=== PATIENT | male | born 1955 | race Caucasian/White ===

== ENCOUNTER 2018-06-21 14:36 | Emergency (ER) | payer MEDICAID ==
[2018-06-21] MEDS: Lidocaine 2% Viscous Solution 100 ML Bottle PO STA (14:55)
--- NOTE | 2018-06-21 15:00 | EDM.PDOC ---
ED HPI GENERAL MEDICAL PROBLEM - General Chief Complaint: General Stated Complaint: Meat Stick Stuck in the Throat Time Seen by Provider: 06/21/18 14:55 Source of Information: Reports: Patient History Limitations: Reports: No Limitations - History of Present Illness INITIAL COMMENTS - FREE TEXT/NARRATIVE: According to patient he ate eggs and steak for breakfast around 8 am today. He felt a piece of steak stuck in his throat. Since then he was not been able to eat or drink. Claims he feels the food is stuck in the throat. No nausea or vomiting. He claims he did have hiccough for a while. No nausea or vomiting. No increased salivation. Onset: Today Onset Date: 06/21/18 Onset Time: 08:00 Severity: Mild Improves with: Reports: None Worsens with: Reports: None Associated Symptoms: Denies: Confusion, Chest Pain, Cough, Diaphoresis, Fever/ Chills, Nausea/Vomiting, Rash, Seizure, Shortness of Breath, Syncope, Weakness - Related Data Allergies Allergy/AdvReac Type Severity Reaction Status Date / Time No Known Allergies Allergy Verified 04/24/14 10:01 Past Medical History - Past Health History Medical/Surgical History: Denies Medical/Surgical History ED ROS GENERAL - Review of Systems Review Of Systems: See Below Constitutional: Denies: Fever, Chills, Malaise, Weakness HEENT: Reports: Throat Pain. Denies: Nose Pain, Rhinitis, Throat Swelling, Vertigo, Vision Change Respiratory: Denies: Shortness of Breath, Cough, Sputum Cardiovascular: Denies: Chest Pain, Lightheadedness GI/Abdominal: Reports: Flatus. Denies: Abdominal Pain, Constipation, Nausea, Vomiting : Denies: Flank Pain, Frequency ED EXAM, GENERAL - Physical Exam Exam: See Below Exam Limited By: No Limitations General Appearance: Alert, WD/WN, No Apparent Distress Eye Exam: Bilateral Eye: EOMI, PERRL Ears: Normal External Exam, Normal Canal, Hearing Grossly Normal, Normal TMs Ear Exam: Bilateral Ear: TM normal Nose: Normal Inspection, Normal Mucosa, No Blood Throat/Mouth: Normal Inspection, Normal Lips, Normal Teeth, Normal Gums, Normal Oropharynx, Normal Voice, No Airway Compromise Head: Atraumatic, Normocephalic Neck: Normal Inspection, Supple, Non-Tender, Full Range of Motion Respiratory/Chest: No Respiratory Distress, Lungs Clear, Normal Breath Sounds, No Accessory Muscle Use, Chest Non-Tender Cardiovascular: Normal Peripheral Pulses, Regular Rate, Rhythm, No Edema, No Gallop, No JVD, No Murmur, No Rub GI/Abdominal: Normal Bowel Sounds, Soft, Non-Tender, No Organomegaly, No Distention, No Abnormal Bruit, No Mass Course - Vital Signs Text/Narrative:: Pt has been speaking fine, has been swallowing saliva. Not in distress . Pt was giving water to drink in the emergency room, he did drink the cup of water. he claimed he felt fine and was not able to do this all day. then he was given Xylocaine viscus 30mg to drink, which he did and also drank 1 more cup of water. felt better. Pt reassured that there is no food stuck in the food pipe at this point as he has been able to drink 2 cups of water not keep it down and he is not ahving excessive salivation. Pt advised soft diet for next 24 hrs. advised to chew his food well. Departure - Departure Time of Disposition: 15:10 Disposition: Home, Self-Care 01 Condition: Fair Clinical Impression: Dysphagia - Discharge Information - Problem List & Annotations (1) Dysphagia SNOMED Code(s): 68611426, 994068854 Code(s): R13.10 - DYSPHAGIA, UNSPECIFIED Status: Acute - Problem List Review Problem List Initiated/Reviewed/Updated: Yes - Assessment/Plan Assessment:: Dysphagia Plan: Pt has been speaking fine, has been swallowing saliva. Not in distress . Pt was giving water to drink in the emergency room, he did drink the cup of water. he claimed he felt fine and was not able to do this all day. then he was given Xylocaine viscus 30mg to drink, which he did and also drank 1 more cup of water. felt better. Pt reassured that there is no food stuck in the food pipe at this point as he has been able to drink 2 cups of water not keep it down and he is not ahving excessive salivation. Pt advised soft diet for next 24 hrs. advised to chew his food well.
== END 2018-06-21 15:00 | disposition home or self-care (01) ==
LOC: LB.ED 14:36
DX: R13.10 Dysphagia, unspecified (principal)
CPT/HCPCS: 99283; A9270-GY

== ENCOUNTER 2019-05-22 13:10 | Emergency (ER) | payer OTHER, MEDICAID ==
--- NOTE | 2019-05-22 13:52 | EDM.PDOC ---
ED HPI GENERAL MEDICAL PROBLEM - General Chief Complaint: Respiratory Problem Stated Complaint: Cough Time Seen by Provider: 05/22/19 13:30 - History of Present Illness INITIAL COMMENTS - FREE TEXT/NARRATIVE: THis patient presents to the ED because he isn't feeling right. He states he is feeling congested and feels like he should cough something out of his lungs but can't. He also states he feels sweaty and warm but denies a fever. He denies headache or chest pain. He denies nausea, vomiting. States he has been taking his medication as prescribed. - Related Data Allergies Allergy/AdvReac Type Severity Reaction Status Date / Time No Known Allergies Allergy Verified 05/22/19 13:35 Home Meds: Home Meds Hydrocodone/Acetaminophen [Hydrocodon-Acetaminophn 10-300] 10 - 325 mg PO TID PRN 05/20/19 [History] Omeprazole 20 mg PO DAILY PRN 05/20/19 [History] Propranolol [Inderal] 80 mg PO BID 05/20/19 [History] Tamsulosin [Flomax] 0.4 mg PO DAILY 05/20/19 [History] atorvaSTATin Calcium [Atorvastatin Calcium] 40 mg PO BEDTIME 05/20/19 [History] Past Medical History - Past Health History Medical/Surgical History: Denies Medical/Surgical History ED ROS GENERAL - Review of Systems Review Of Systems: See Below Constitutional: Denies: Fever, Chills, Weakness HEENT: Reports: No Symptoms Respiratory: Reports: Cough, Other (congestion). Denies: Shortness of Breath Cardiovascular: Denies: Chest Pain, Dyspnea on Exertion, Palpitations GI/Abdominal: Reports: No Symptoms Musculoskeletal: Reports: No Symptoms Neurological: Reports: No Symptoms ED EXAM, GENERAL - Physical Exam Exam: See Below Exam Limited By: No Limitations General Appearance: Alert, No Apparent Distress Eye Exam: Bilateral Eye: PERRL Nose: Normal Inspection Throat/Mouth: Normal Inspection Head: Atraumatic, Normocephalic Neck: Normal Inspection, Supple, Non-Tender, Full Range of Motion Respiratory/Chest: No Respiratory Distress, Lungs Clear, Normal Breath Sounds, Chest Non-Tender Cardiovascular: Regular Rate, Rhythm Extremities: Normal Range of Motion Neurological: Alert, Oriented Psychiatric: Normal Affect Skin Exam: Warm, Dry Course - Vital Signs Last Recorded V/S: Last Vital Signs Temp 35.6 C 05/22/19 13:20 Pulse 80 05/22/19 13:20 Resp 20 05/22/19 13:20 BP 135/92 H 05/22/19 13:20 Pulse Ox 96 05/22/19 13:20 - Orders/Labs/Meds Orders: Active Orders 24 hr Category Date Time Status Chest 2V [CR] Stat Exams 05/22/19 13:45 Taken Labs: Laboratory Tests 05/22/19 05/22/19 05/22/19 Range/Units 14:00 14:00 14:00 WBC 10.2 (4.0-11.0) K/uL RBC 5.53 (4.50-6.50) M/uL Hgb 15.3 (13.0-18.0) g/dL Hct 46.4 (40.0-54.0) % MCV 84 (76-96) fL MCH 27.7 (27.0-32.0) pg MCHC 33.0 (31.0-35.0) g/dL RDW 14.3 (11.0-16.0) % Plt Count 128 L (150-400) K/uL MPV 11.4 H (6.0-10.0) fL Neut % (Auto) 82.8 H (45.0-70.0) % Lymph % (Auto) 9.2 L (20.0-40.0) % Sandoval % (Auto) 6.5 (3.0-10.0) % Eos % (Auto) 0.9 L (1.0-5.0) % Baso % (Auto) 0.6 H (0.0-0.5) % Neut # (Auto) 8.48 H (2.00-7.50) K/uL Lymph # (Auto) 0.94 L (1.50-4.00) K/uL Sandoval # (Auto) 0.67 (0.20-0.80) K/uL Eos # (Auto) 0.09 (0.04-0.40) K/uL Baso # (Auto) 0.06 (0.02-0.10) K/uL D-Dimer, Quantitative 427 H (0-400) ng/mL Sodium 141 (136-145) mmol/L Potassium 4.8 (3.5-5.1) mmol/L Chloride 102 (98-107) mmol/L Carbon Dioxide 28.8 (21.0-32.0) mmol/L Anion Gap 15.0 (5.0-15.0) mmol/L BUN 13 (8-26) mg/dL Creatinine 1.39 H (0.70-1.30) mg/dL Est Cr Clr Drug Dosing 65.86 mL/min Estimated GFR (MDRD) 52 L (>60) MLS/MIN BUN/Creatinine Ratio 9.4 (6-25) Glucose 192 H D (74-100) mg/dL Calcium 9.2 (8.5-10.1) mg/dL Troponin I (0.000-0.060) ng/mL B-Natriuretic Peptide (0-125) pg/mL 05/22/19 Range/Units 14:00 WBC (4.0-11.0) K/uL RBC (4.50-6.50) M/uL Hgb (13.0-18.0) g/dL Hct (40.0-54.0) % MCV (76-96) fL MCH (27.0-32.0) pg MCHC (31.0-35.0) g/dL RDW (11.0-16.0) % Plt Count (150-400) K/uL MPV (6.0-10.0) fL Neut % (Auto) (45.0-70.0) % Lymph % (Auto) (20.0-40.0) % Sandoval % (Auto) (3.0-10.0) % Eos % (Auto) (1.0-5.0) % Baso % (Auto) (0.0-0.5) % Neut # (Auto) (2.00-7.50) K/uL Lymph # (Auto) (1.50-4.00) K/uL Sandoval # (Auto) (0.20-0.80) K/uL Eos # (Auto) (0.04-0.40) K/uL Baso # (Auto) (0.02-0.10) K/uL D-Dimer, Quantitative (0-400) ng/mL Sodium (136-145) mmol/L Potassium (3.5-5.1) mmol/L Chloride (98-107) mmol/L Carbon Dioxide (21.0-32.0) mmol/L Anion Gap (5.0-15.0) mmol/L BUN (8-26) mg/dL Creatinine (0.70-1.30) mg/dL Est Cr Clr Drug Dosing mL/min Estimated GFR (MDRD) (>60) MLS/MIN BUN/Creatinine Ratio (6-25) Glucose (74-100) mg/dL Calcium (8.5-10.1) mg/dL Troponin I < 0.017 (0.000-0.060) ng/mL B-Natriuretic Peptide 179 H (0-125) pg/mL - Re-Assessments/Exams Free Text/Narrative Re-Assessment/Exam: 05/22/19 15:26 Patient was not able to clearly articulate his reason for coming in today. He had a normal physical exam. Labs and a CXR were obtained but he did not want to wait for the results, initially stating to "tell Dr. Lyle to call me with the results." I told the patient that I would contact him later this afternoon when the results were available. 05/22/19 15:29 Unable to reach patient by phone to discuss lab and CXR results. Let message with request to call me back. 05/22/19 16:04 Spoke with the patient by phone to review lab and CXR results; questions addressed. He does have a stress test scheduled for Friday, 05/24 and was advised to plan on doing this unless he develops a cough, shortness or breath, chest pain, or other concerning symptoms over the weekend. If he does, he was instructed to return to the ED immediately. Departure - Departure Time of Disposition: 15:00 Disposition: Home, Self-Care 01 Condition: Good Clinical Impression: Chest fullness - Discharge Information *PRESCRIPTION DRUG MONITORING PROGRAM REVIEWED*: Not Applicable *COPY OF PRESCRIPTION DRUG MONITORING REPORT IN PATIENT FREDDIE: Not Applicable Instructions: Nonspecific Chest Pain Forms: ED Department Discharge - My Orders Last 24 Hours: My Active Orders 05/22/19 13:45 Chest 2V [CR] Stat - Assessment/Plan Last 24 Hours: My Active Orders 05/22/19 13:45 Chest 2V [CR] Stat
--- NOTE | 2019-05-23 17:52 | CR ---
DATE OF SERVICE: 05/22/19 CLINICAL DATA: congestion PA AND LATERAL CHEST: No priors. The heart size is normal. There is calcification of the aortic arch. There is an electronic device overlying the left upper lung. There is pleural thickening of both hemithoraces. The lungs are otherwise clear. No pneumothorax. No areas of consolidation. No other significant findings. [id number] MTDD
== END 2019-05-22 14:14 | disposition home or self-care (01) ==
LOC: LB.ED 13:10
DX: R09.89 Other specified symptoms and signs involving the circulatory and respiratory systems (principal)
CPT/HCPCS: 36415; 71046; 80048; 83880; 84484; 85025; 85379; 99283-25; 99284

== ENCOUNTER 2019-07-24 16:40 | Emergency (ER) | payer OTHER ==
[2019-07-24] MEDS ORDERED: cefTRIAXone 1 GM Vial ONE (17:48)
[2019-07-24] MEDS ORDERED: Amoxicillin/Clavulanate K 875-125 MG Tab ONE (18:00)
[2019-07-24] MEDS ORDERED: Lidocaine 1% 10 ML MDV ONE (18:00)
[2019-07-24] MEDS ORDERED: Diphtheria,Pertussis(Acell),Tetanus Vaccine 0.5 ML SDV inactive IM ONE (18:05)
[2019-07-24] MEDS ORDERED: cefTRIAXone 1 GM Vial IM ONE (18:30)
--- NOTE | 2019-07-24 18:57 | EDM.PDOC ---
ED HPI GENERAL MEDICAL PROBLEM - General Chief Complaint: Laceration Stated Complaint: CUT ON LEG Time Seen by Provider: 07/24/19 16:45 Source of Information: Reports: Patient History Limitations: Reports: No Limitations - History of Present Illness INITIAL COMMENTS - FREE TEXT/NARRATIVE: According to patient he claims he was getting of his tractor and accidentally hit his right leg against the tractor step and sustained a laceration of the right leg. He was wearing Jeans pant and the jeans did not tear open from the trauma. He has been bleeding from the wound. Pt claims he has PVD of the lower extremities and he does have chronic swelling of the legs. No other injuries. Pt is not sure of his last tetanus. No other injuries. Onset: Today Onset Date: 07/24/19 Location: Reports: Lower Extremity, Right Quality: Reports: Ache Severity: Mild Improves with: Reports: None Worsens with: Reports: None Associated Symptoms: Denies: Chest Pain, Cough, Diaphoresis, Fever/Chills, Headaches, Nausea/Vomiting, Rash, Seizure, Shortness of Breath, Syncope, Weakness Right Lower Leg Pain Score (Numeric/FACES): 2 - Related Data Allergies Allergy/AdvReac Type Severity Reaction Status Date / Time No Known Allergies Allergy Verified 05/22/19 13:35 Home Meds: Home Meds Hydrocodone/Acetaminophen [Hydrocodon-Acetaminophn 10-300] 10 - 325 mg PO TID PRN 05/20/19 [History] Propranolol [Inderal] 80 mg PO BID 05/20/19 [History] Tamsulosin [Flomax] 0.4 mg PO DAILY 05/20/19 [History] atorvaSTATin Calcium [Atorvastatin Calcium] 40 mg PO BEDTIME 05/20/19 [History] Aspirin [Halfprin] 81 mg PO DAILY 07/24/19 [History] Fish Oil/[place]-3 Fatty Acids [Fish Oil 1,000 MG] 1 cap PO BID 07/24/19 [History] Past Medical History - Past Health History Medical/Surgical History: Denies Medical/Surgical History Cardiovascular History: Reports: High Cholesterol, Hypertension Social & Family History - Caffeine Use Caffeine Use: Reports: Soda ED ROS GENERAL - Review of Systems Review Of Systems: See Below Constitutional: Denies: Fever, Chills HEENT: Denies: Rhinitis, Throat Pain Respiratory: Denies: Cough, Sputum Cardiovascular: Denies: Chest Pain, Lightheadedness GI/Abdominal: Denies: Abdominal Pain, Nausea, Vomiting : Denies: Dysuria, Flank Pain Musculoskeletal: Denies: Joint Pain, Joint Swelling Skin: Reports: Wound. Denies: Bruising, Pruritis, Rash ED EXAM, SKIN/RASH Exam: See Below Exam Limited By: No Limitations General Appearance: Alert, WD/WN, No Apparent Distress Eye Exam: Bilateral Eye: EOMI, PERRL Ears: Normal External Exam, Normal Canal, Hearing Grossly Normal, Normal TMs Nose: Normal Inspection, Normal Mucosa, No Blood Throat/Mouth: Normal Inspection, Normal Lips, Normal Teeth, Normal Gums, Normal Oropharynx, Normal Voice, No Airway Compromise Head: Atraumatic, Normocephalic Neck: Normal Inspection, Supple, Non-Tender, Full Range of Motion Respiratory/Chest: No Respiratory Distress, Lungs Clear, Normal Breath Sounds, No Accessory Muscle Use, Chest Non-Tender Cardiovascular: Normal Peripheral Pulses, Regular Rate, Rhythm, No Edema, No Gallop, No JVD, No Murmur, No Rub Extremities: Normal Range of Motion, Normal Capillary Refill Skin: Warm, Other (right leg: there is "L" shaped 9 cm laceration over the midleg over debora medial monet of the tibis. the skin and subcutaneosu tissue is exposed and the bone is see. No fascial injury.There is maceration of the skin margin. Normal neurovascular exam of the foot. There is chronic pitting edema 3+ .) ED SKIN PROCEDURES - Laceration/Wound Repair Right Leg Appearance: Subcutaneous Distal NVT: Neuro & Vascular Intact, No Tendon Injury Local Anesthesia - Lidocaine (Xylocaine): 1% with EPI Local Anesthetic Volume: Other (6 cc) Skin Prep: Providone-Iodine (Betadine) Exploration/Debridement/Repair: Wound Explored, Wound Margins Revised Closed with: Sutures Lac/Wound length In cm: 9 Suture Size: 3-0 # of Sutures: 14 Suture Size: 2-0 # of Sutures: 7 Repaired with: Vicryl Sterile Dressing Applied: Provider Tetanus Status Addressed: Yes Complications: No Course - Vital Signs Text/Narrative:: Pt reassured. the wound was irrigated and cleaned with Betadine lotion. Closed in layers under aseptic precaution. Pressure dressing done. He did receive tetanus. As it is very deep wound and outdoor exposure of dirt, empirically gave Rocephin 1 gm . Advised elevation of the leg. Also avoid bending the ankle. Pt was offered walking boot. He wants crutches as his leg swells up and will cause problem with circulation with walking boot.Motrin 800mg times daily for pain. Followup in clinic on Friday for wound check. Pt discharged with Augmentin 875mg BID for 10 days. Last Recorded V/S: Last Vital Signs Temp 97.8 F 07/24/19 17:02 Pulse 84 07/24/19 17:02 Resp BP 158/89 H 07/24/19 17:02 Pulse Ox 98 07/24/19 17:02 - Orders/Labs/Meds Meds: Medications Discontinued Medications Generic Name Dose Route Start Last Admin Trade Name Niko PRN Reason Stop Dose Admin Ceftriaxone Sodium Confirm 07/24/19 17:48 Rocephin Administered 07/24/19 17:49 Dose 1 gm .ROUTE .STK-MED ONE Departure - Departure Time of Disposition: 18:30 Disposition: Home, Self-Care 01 Condition: Fair Clinical Impression: Leg laceration - Discharge Information *PRESCRIPTION DRUG MONITORING PROGRAM REVIEWED*: Not Applicable *COPY OF PRESCRIPTION DRUG MONITORING REPORT IN PATIENT FREDDIE: Not Applicable Referrals: PCP,None [Primary Care Provider] - Forms: ED Department Discharge Additional Instructions: Please follow the dr directions. - Problem List & Annotations (1) Leg laceration SNOMED Code(s): 933755477 Code(s): S81.819A - LACERATION WITHOUT FOREIGN BODY, UNSP LOWER LEG, INIT ENCNTR Status: Acute Current Visit: Yes - Problem List Review Problem List Initiated/Reviewed/Updated: Yes - Assessment/Plan Assessment:: 9 cm right leg laceration
== END 2019-07-24 18:35 | disposition home or self-care (01) ==
LOC: LB.ED 16:40
DX: S81.811A Laceration without foreign body, right lower leg, initial encounter (principal); Z23 Encounter for immunization; W22.8XXA Striking against or struck by other objects, initial encounter; Y93.89 Activity, other specified
CPT/HCPCS: 12034; 90471; 90715; 96372; 99282-25; 99283; A9270-GY; J0696; J2001

== ENCOUNTER 2019-09-16 10:57 | Day surgery (SDC) | payer OTHER, MEDICAID ==
[2019-09-16] MEDS ORDERED: Metoclopramide 10 MG/2 ML SDV IV PRN (11:00)
[2019-09-16] MEDS: Sodium Chloride 0.9% 1,000 ML IV SCH (11:50)
[2019-09-16] MEDS ORDERED: Propofol 1,000 MG/100 ML SDV ONE (13:55)
--- NOTE | 2019-09-16 14:41 | OR ---
DATE OF OPERATION: 09/16/2019 SURGEON: Nakul Carrillo MD PREOPERATIVE DIAGNOSIS: Personal history of polyps. POSTOPERATIVE DIAGNOSIS: Personal history of polyps. PROCEDURE: Colonoscopy with polypectomy. ANESTHESIA: MAC. ESTIMATED BLOOD LOSS: Minimal. COMPLICATIONS: None. INDICATION FOR THE PROCEDURE: The patient is a 64-year-old male who has had a personal history of polyps in the past, around 10 years ago had a colonoscopy and apparently had 18 polyps removed. His last colonoscopy was approximately 5 years ago and per patient had no polyps. He otherwise denies any change in bowel habits. DESCRIPTION OF PROCEDURE: Informed consent was obtained from the patient. The patient was taken to the operating room, placed on the table in a left lateral decubitus position. Monitored anesthesia care was administered. Digital rectal exam performed and was normal. Colonoscope then advanced through the anus, directed toward the cecum. Cecum was reached and identified by appendiceal orifice and ileocecal valve. Colonoscope then slowly withdrawn. He did have a small sessile polyp in the sigmoid colon. This was removed using snare cautery polypectomy. The polyp was not retrieved, however, that was benign appearing. Colonoscope then further withdrawn. Retroflexion performed in the rectum showing a grade 2 internal hemorrhoids. Colonoscope then withdrawn. FINDINGS: Sigmoid, benign-appearing polyp and internal hemorrhoids. RECOMMENDATIONS: Would recommend repeat screening or surveillance colonoscopy in 5 years due to polyps. Un-retrieved polyp was benign appearing. No concerns over this. Would also recommend increase fiber in the diet and water due to his internal hemorrhoids. CARLOS/ARMAND /[id number]
== END 2019-09-16 14:55 | disposition home or self-care (01) ==
LOC: LB.SDS 10:57
PROVIDERS: ATTEND Surgery
DX: Z12.11 Encounter for screening for malignant neoplasm of colon (principal); Z86.010 Personal history of colon polyps
CPT/HCPCS: 45378; 82962; J2704; J7030; G0121

== ENCOUNTER 2019-12-28 10:09 | Observation (INO) | payer OTHER, MEDICAID ==
[2019-12-28] MEDS ORDERED: Acetaminophen/oxyCODONE 325-5 MG Tab PO PRN (10:58)
[2019-12-28] MEDS ORDERED: Dexamethasone 4 MG/ML SDV PO ONE (10:58)
[2019-12-28] MEDS ORDERED: Albuterol/Ipratropium 3.0-0.5 MG/3 ML Neb Soln ONE (10:59)
[2019-12-28] MEDS ORDERED: Dexamethasone 4 MG/ML SDV ONE ×2 (10:59→15:34)
[2019-12-28] MEDS: Albuterol/Ipratropium 3.0-0.5 MG/3 ML Neb Soln NEB SCH (11:06)
[2019-12-28 12:27] LABS: HEMOGLOBIN A1C 7.5 % (< 5.7)
[2019-12-28] MEDS ORDERED: Sodium Chloride 0.9% 50 ML SDV FLUSH ONE (12:31)
[2019-12-28] MEDS ORDERED: Iopamidol 755 Mg/ML 100 ML Bottle IV SCH (12:45)
--- NOTE | 2019-12-28 14:19 | CT ---
DATE OF SERVICE: 12/28/2019 CLINICAL DATA: Rule out PE Enhanced chest CT: Multislice axial acquisition through the chest with IV contrast was performed. Breathing motion artifact degrades image quality. No evidence of PE. No pneumothorax. No pleural effusions. No aortic aneurysm or dissection. There are atelectatic changes in the dependent portion of both lungs and in both lung bases. The lungs are otherwise clear. The heart size is normal. No hilar or mediastinal adenopathy. There is diffuse fatty infiltration of the liver. Impression: No acute abnormalities. MTDD
--- NOTE | 2019-12-28 14:24 | CT ---
DATE OF SERVICE: 12/28/2019 CLINICAL DATA: Congestion Paranasal sinus CT: Multislice axial acquisition was performed. There is mucosal thickening in the ethmoid, sphenoid, maxillary, and frontal sinuses consistent with chronic sinusitis. There are rounded, low density lesions in the frontal, sphenoid, and left maxillary sinuses consistent with retention cysts or polyps. No air-fluid levels. There is mild deviation nasal septum to the left. There is soft tissue swelling of the middle and paranasal turbinates. There is partial clouding of the ostiomeatal units bilaterally. No other significant findings. MTDD
--- NOTE | 2019-12-28 14:33 | CT ---
DATE OF SERVICE: 12/28/2019 CLINICAL DATA: Congestion PA and lateral chest: Comparison made to prior exam dated 05/22/2019. There is an electronic device that overlies the left upper lung, unchanged in the prior study. The heart size is stable. There is pleural thickening in both hemithoraces. There mild interstitial changes in the mid and lower lungs. No areas of consolidation. No pneumothorax. No pleural effusions. The exam is otherwise unchanged. [facility]
[2019-12-28] MEDS ORDERED: cefTRIAXone 1 GM Vial ONE ×2 (14:56→15:15)
[2019-12-28] MEDS ORDERED: cefTRIAXone 2 GM in Sodium Chloride 0.9% 100 ML IV ONE (15:01)
[2019-12-28] MEDS ORDERED: Dexamethasone 4 MG/ML SDV IVPUSH ONE (15:01)
[2019-12-28] MEDS ORDERED: Sodium Chloride 0.9% 1,000 ML IV ONE ×3 (15:01→18:32)
--- NOTE | 2019-12-28 15:13 | EDM.PDOC ---
ED HPI GENERAL MEDICAL PROBLEM - General Chief Complaint: General Stated Complaint: SICK Time Seen by Provider: 12/28/19 10:30 - History of Present Illness INITIAL COMMENTS - FREE TEXT/NARRATIVE: Thomas presents to the emergency room today with a two-week history of malaise. His main complaint, the one that triggered his evaluation today, his fatigue. He states that he just does not have any energy. He denies any recent fever, but has been having a dry cough. He states that he was supposed to follow-up with the ear nose and throat expert due to some leakage of his right ear several years ago which he believes continues to happen. He mainly came in because he had a presyncopal episode last evening. He denies any chest pain. He has had no issues with orthopnea or paroxysmal nocturnal dyspnea. He has had no GI or symptoms. He has no personal or family history of thromboembolism. He continues to ambulate daily. He just feels like "my take is out of gas". He acknowledges feeling thirsty. He has stayed on his usual prednisone dose which we believe is 5 mg p.o. twice daily. His last A1c was quite elevated, and he is due for recheck labs. - Related Data Allergies Allergy/AdvReac Type Severity Reaction Status Date / Time No Known Allergies Allergy Verified 09/14/19 11:36 Home Meds: Home Meds Hydrocodone/Acetaminophen [Hydrocodon-Acetaminophn 10-300] 10 - 325 mg PO TID PRN 05/20/19 [History] Propranolol [Inderal] 80 mg PO BID 05/20/19 [History] Tamsulosin [Flomax] 0.4 mg PO DAILY 05/20/19 [History] atorvaSTATin Calcium [Atorvastatin Calcium] 40 mg PO BEDTIME 05/20/19 [History] Aspirin [Halfprin] 81 mg PO DAILY 07/24/19 [History] Fish Oil/[place]-3 Fatty Acids [Fish Oil 1,000 MG] 1 cap PO BID 07/24/19 [History] Omeprazole 20 mg PO DAILY 09/14/19 [History] predniSONE [Prednisone] 5 mg PO BID 09/14/19 [History] Past Medical History - Past Health History Medical/Surgical History: Denies Medical/Surgical History Other HEENT History: history of ruptured eardrum Cardiovascular History: Reports: High Cholesterol, Hypertension Genitourinary History: Reports: BPH Endocrine/Metabolic History: Reports: Diabetes, Type II Other Endocrine/Metabolic History: Newly diagnosed-olipizide Social & Family History - Family History Family Medical History: Noncontributory - Tobacco Use Smoking Status *Q: Former Smoker Used Tobacco, but Quit: Yes Month/Year Tobacco Last Used: 2016 - Caffeine Use Caffeine Use: Reports: Coffee ED ROS GENERAL - Review of Systems Review Of Systems: Comprehensive ROS is negative, except as noted in HPI. ED EXAM, GENERAL - Physical Exam Exam: See Below Exam Limited By: No Limitations General Appearance: Alert, WD/WN, No Apparent Distress Eye Exam: Bilateral Eye: EOMI, PERRL Ears: Normal External Exam, Normal Canal, Hearing Grossly Normal Course - Vital Signs Text/Narrative:: Reviewed differential diagnosis with Mihir, and at this point, his presentation is somewhat vague. I wanted to rule out some more concerning or acute life-threatening potential underlying conditions, and therefore we ended up obtaining a CT of his chest to rule out PE which was entirely unremarkable. He asked for CT of his sinuses because he has been having a lot of issues with this. I assume that he must be having quite a bit of postnasal drip, which is contributing to his cough. He was given a nebulizer, with no real difference and auscultation of his lungs except for maybe an improvement in his expiratory phase. We discussed potential treatment measures, and for all practical purposes, he seems volume depleted. We will cover him with stress dose steroids by providing him with a 4 mg dose of dexamethasone IV, and 12 mg p.o., for lack of a better thing to do. Also plan on covering him with cefuroxime 500 mg p.o. twice daily x10 days for his chronic sinusitis, although this does not fully explain his fatigue. He promises to follow-up in the clinic. He does not appear to be a candidate to admit because really we do not have any clear acute diagnosis. Certainly it may be worthwhile to scan his abdomen and pelvis at some point. He was congratulated on better control regards of his A1c. He will return promptly with any more serious symptoms, otherwise plans on following up in the clinic with his primary doctor in the next week or so to discuss further work-up options. Last Recorded V/S: Last Vital Signs Temp 97.2 F 12/28/19 10:20 Pulse 68 12/28/19 14:37 Resp 20 12/28/19 14:37 BP 104/82 12/28/19 10:37 Pulse Ox 95 12/28/19 14:37 - Orders/Labs/Meds Orders: Active Orders 24 hr Category Date Time Status EKG Documentation Completion [RC] ASDIRECTED Care 12/28/19 11:00 Active RT Aerosol Therapy [RC] ASDIRECTED Care 12/28/19 11:01 Active Albuterol/Ipratropium [DuoNeb 3.0-0.5 MG/3 ML] Med 12/28/19 11:00 Active 3 ml NEB Q8H Iopamidol [Isovue-370 (76%)] Med 12/28/19 12:45 Active 100 ml IV . DIRECTED Sodium Chloride 0.9% [Normal Saline] 1,000 ml Med 12/28/19 15:01 Active IV .BOLUS cefTRIAXone [Rocephin] 2 gm Med 12/28/19 15:01 Active Sodium Chloride 0.9% [Normal Saline] 100 ml IV ONETIME Medication Orders Albuterol/Ipratropium (Duoneb 3.0-0.5 Mg/3 Ml) 3 ml NEB Q8H GLADIS Last Admin: 12/28/19 11:06 Dose: 3 ml Ceftriaxone Sodium 2 gm/ (Sodium Chloride) 100 mls @ 100 mls/hr IV ONETIME ONE Stop: 12/28/19 16:00 Last Admin: 12/28/19 15:23 Dose: 100 mls/hr Sodium Chloride (Normal Saline) 1,000 mls @ 999 mls/hr IV .BOLUS ONE Stop: 12/28/19 16:01 Last Admin: 12/28/19 15:10 Dose: 999 mls/hr Iopamidol (Isovue-370 (76%)) 100 ml IV . DIRECTED [facility] Labs: Laboratory Tests 12/28/19 12/28/19 12/28/19 Range/Units 10:53 10:53 10:53 WBC 5.4 D (4.0-11.0) K/uL RBC 5.13 (4.50-6.50) M/uL Hgb 14.4 (13.0-18.0) g/dL Hct 43.1 (40.0-54.0) % MCV 84 (76-96) fL MCH 28.1 (27.0-32.0) pg MCHC 33.4 (31.0-35.0) g/dL RDW 13.8 (11.0-16.0) % Plt Count 151 (150-400) K/uL MPV 10.8 H (6.0-10.0) fL Neut % (Auto) 62.7 (45.0-70.0) % Lymph % (Auto) 19.7 L (20.0-40.0) % [place] % (Auto) 13.0 H (3.0-10.0) % Eos % (Auto) 3.9 (1.0-5.0) % Baso % (Auto) 0.7 H (0.0-0.5) % Neut # (Auto) 3.38 (2.00-7.50) K/uL Lymph # (Auto) 1.06 L (1.50-4.00) K/uL [place] # (Auto) 0.70 (0.20-0.80) K/uL Eos # (Auto) 0.21 (0.04-0.40) K/uL Baso # (Auto) 0.04 (0.02-0.10) K/uL D-Dimer, Quantitative (0-400) ng/mL Sodium 137 (136-145) mmol/L Potassium 4.3 (3.5-5.1) mmol/L Chloride 98 (98-107) mmol/L Carbon Dioxide 28.1 (21.0-32.0) mmol/L Anion Gap 15.2 H (5.0-15.0) mmol/L BUN 10 D (8-26) mg/dL Creatinine 1.49 H (0.70-1.30) mg/dL Est Cr Clr Drug Dosing 62.30 mL/min Estimated GFR (MDRD) 48 L (>60) MLS/MIN BUN/Creatinine Ratio 6.7 (6-25) Glucose 126 H D (74-100) mg/dL Hemoglobin A1c (< 5.7) % Lactic Acid 2.2 H (0.4-2.0) mmol/L Calcium 8.7 (8.5-10.1) mg/dL Total Bilirubin 1.1 H D (0.0-1.0) mg/dL AST 49 H (15-37) U/L ALT 53 (12-78) U/L Alkaline Phosphatase 77 (46-116) U/L Troponin I (0.000-0.060) ng/mL B-Natriuretic Peptide (0-125) pg/mL Total Protein 7.0 (6.4-8.2) g/dL Albumin 3.0 L (3.4-5.0) g/dL Globulin 4.0 (2.2-4.2) g/dL Albumin/Globulin Ratio 0.8 (0.8-2.0) Urine Color Urine Appearance (CLEAR) Urine pH (5.0-8.0) Ur Specific [place] (1.003-1.030) Urine Protein (NEGATIVE) mg/dL Urine Glucose (UA) (NEGATIVE) mg/dL Urine Ketones (NEGATIVE) mg/dL Urine Occult Blood (NEGATIVE) Urine Nitrite (NEGATIVE) Urine Bilirubin (NEGATIVE) Urine Urobilinogen (0.2-1.0) E.U./dL Ur Leukocyte Esterase (NEGATIVE) U Hyaline Cast (Auto) /HPF Urine RBC /HPF Urine WBC /HPF Ur Squamous Epith Cells /HPF Amorphous Sediment /HPF Urine Bacteria /HPF Urine Mucus /HPF 12/28/19 12/28/19 12/28/19 Range/Units 10:53 10:58 10:58 WBC (4.0-11.0) K/uL RBC (4.50-6.50) M/uL Hgb (13.0-18.0) g/dL Hct (40.0-54.0) % MCV (76-96) fL MCH (27.0-32.0) pg MCHC (31.0-35.0) g/dL RDW (11.0-16.0) % Plt Count (150-400) K/uL MPV (6.0-10.0) fL Neut % (Auto) (45.0-70.0) % Lymph % (Auto) (20.0-40.0) % [place] % (Auto) (3.0-10.0) % Eos % (Auto) (1.0-5.0) % Baso % (Auto) (0.0-0.5) % Neut # (Auto) (2.00-7.50) K/uL Lymph # (Auto) (1.50-4.00) K/uL [place] # (Auto) (0.20-0.80) K/uL Eos # (Auto) (0.04-0.40) K/uL Baso # (Auto) (0.02-0.10) K/uL D-Dimer, Quantitative 1030 H (0-400) ng/mL Sodium (136-145) mmol/L Potassium (3.5-5.1) mmol/L Chloride (98-107) mmol/L Carbon Dioxide (21.0-32.0) mmol/L Anion Gap (5.0-15.0) mmol/L BUN (8-26) mg/dL Creatinine (0.70-1.30) mg/dL Est Cr Clr Drug Dosing mL/min Estimated GFR (MDRD) (>60) MLS/MIN BUN/Creatinine Ratio (6-25) Glucose (74-100) mg/dL Hemoglobin A1c 7.5 H (< 5.7) % Lactic Acid (0.4-2.0) mmol/L Calcium (8.5-10.1) mg/dL Total Bilirubin (0.0-1.0) mg/dL AST (15-37) U/L ALT (12-78) U/L Alkaline Phosphatase (46-116) U/L Troponin I < 0.017 (0.000-0.060) ng/mL B-Natriuretic Peptide 127 H D (0-125) pg/mL Total Protein (6.4-8.2) g/dL Albumin (3.4-5.0) g/dL Globulin (2.2-4.2) g/dL Albumin/Globulin Ratio (0.8-2.0) Urine Color Urine Appearance (CLEAR) Urine pH (5.0-8.0) Ur Specific [place] (1.003-1.030) Urine Protein (NEGATIVE) mg/dL Urine Glucose (UA) (NEGATIVE) mg/dL Urine Ketones (NEGATIVE) mg/dL Urine Occult Blood (NEGATIVE) Urine Nitrite (NEGATIVE) Urine Bilirubin (NEGATIVE) Urine Urobilinogen (0.2-1.0) E.U./dL Ur Leukocyte Esterase (NEGATIVE) U Hyaline Cast (Auto) /HPF Urine RBC /HPF Urine WBC /HPF Ur Squamous Epith Cells /HPF Amorphous Sediment /HPF Urine Bacteria /HPF Urine Mucus /HPF 03/24/20 Range/Units 13:00 WBC (4.0-11.0) K/uL RBC (4.50-6.50) M/uL Hgb (13.0-18.0) g/dL Hct (40.0-54.0) % MCV (76-96) fL MCH (27.0-32.0) pg MCHC (31.0-35.0) g/dL RDW (11.0-16.0) % Plt Count (150-400) K/uL MPV (6.0-10.0) fL Neut % (Auto) (45.0-70.0) % Lymph % (Auto) (20.0-40.0) % [place] % (Auto) (3.0-10.0) % Eos % (Auto) (1.0-5.0) % Baso % (Auto) (0.0-0.5) % Neut # (Auto) (2.00-7.50) K/uL Lymph # (Auto) (1.50-4.00) K/uL [place] # (Auto) (0.20-0.80) K/uL Eos # (Auto) (0.04-0.40) K/uL Baso # (Auto) (0.02-0.10) K/uL D-Dimer, Quantitative (0-400) ng/mL Sodium (136-145) mmol/L Potassium (3.5-5.1) mmol/L Chloride (98-107) mmol/L Carbon Dioxide (21.0-32.0) mmol/L Anion Gap (5.0-15.0) mmol/L BUN (8-26) mg/dL Creatinine (0.70-1.30) mg/dL Est Cr Clr Drug Dosing mL/min Estimated GFR (MDRD) (>60) MLS/MIN BUN/Creatinine Ratio (6-25) Glucose (74-100) mg/dL Hemoglobin A1c (< 5.7) % Lactic Acid (0.4-2.0) mmol/L Calcium (8.5-10.1) mg/dL Total Bilirubin (0.0-1.0) mg/dL AST (15-37) U/L ALT (12-78) U/L Alkaline Phosphatase (46-116) U/L Troponin I (0.000-0.060) ng/mL B-Natriuretic Peptide (0-125) pg/mL Total Protein (6.4-8.2) g/dL Albumin (3.4-5.0) g/dL Globulin (2.2-4.2) g/dL Albumin/Globulin Ratio (0.8-2.0) Urine Color Yellow Urine Appearance Clear (CLEAR) Urine pH 5.5 (5.0-8.0) Ur Specific [place] >= 1.030 (1.003-1.030) Urine Protein 30 H (NEGATIVE) mg/dL Urine Glucose (UA) Negative (NEGATIVE) mg/dL Urine Ketones 15 H (NEGATIVE) mg/dL Urine Occult Blood Negative (NEGATIVE) Urine Nitrite Negative (NEGATIVE) Urine Bilirubin Moderate H (NEGATIVE) Urine Urobilinogen 1.0 (0.2-1.0) E.U./dL Ur Leukocyte Esterase Negative (NEGATIVE) U Hyaline Cast (Auto) Few /HPF Urine RBC 0-5 H /HPF Urine WBC 5-10 H /HPF Ur Squamous Epith Cells Moderate /HPF Amorphous Sediment Few /HPF Urine Bacteria Few /HPF Urine Mucus Few /HPF Meds: Medications Generic Name Dose Route Start Last Admin Trade Name Freq PRN Reason Stop Dose Admin Albuterol/Ipratropium 3 ml 12/28/19 11:00 12/28/19 11:06 Duoneb 3.0-0.5 Mg/3 Ml NEB 3 ml Q8H GLADIS Administration Ceftriaxone Sodium 2 gm/ 100 mls @ 100 mls/hr 12/28/19 15:01 12/28/19 15:23 Sodium Chloride IV 12/28/19 16:00 100 mls/hr ONETIME ONE Administration Sodium Chloride 1,000 mls @ 999 mls/hr 12/28/19 15:01 12/28/19 15:10 Normal Saline IV 12/28/19 16:01 999 mls/hr .BOLUS ONE Administration Iopamidol 100 ml 12/28/19 12:45 Isovue-370 (76%) IV . DIRECTED GLDAIS Discontinued Medications Generic Name Dose Route Start Last Admin Trade Name Freq PRN Reason Stop Dose Admin Albuterol/Ipratropium Confirm 12/28/19 10:59 12/28/19 11:17 Duoneb 3.0-0.5 Mg/3 Ml Administered 12/28/19 11:00 Not Given Dose 3 ml .ROUTE .STK-MED ONE Ceftriaxone Sodium Confirm 12/28/19 14:56 12/28/19 15:24 Rocephin Administered 12/28/19 14:57 Not Given Dose 1 gm .ROUTE .STK-MED ONE Ceftriaxone Sodium Confirm 12/28/19 15:15 12/28/19 15:25 Rocephin Administered 12/28/19 15:16 Not Given Dose 1 gm .ROUTE .STK-MED ONE Dexamethasone Confirm 12/28/19 10:59 12/28/19 11:17 Dexamethasone Administered 12/28/19 11:00 Not Given Dose 12 mg .ROUTE .STK-MED ONE Dexamethasone 12 mg 12/28/19 10:58 12/28/19 11:18 Dexamethasone PO 12/28/19 10:59 12 mg ONETIME ONE Administration Dexamethasone 4 mg 12/28/19 15:01 12/28/19 15:28 Dexamethasone IVPUSH 12/28/19 15:02 4 mg ONETIME ONE Administration Dexamethasone Confirm 12/28/19 15:34 12/28/19 15:36 Dexamethasone Administered 12/28/19 15:35 Not Given Dose 4 mg .ROUTE .STK-MED ONE Diazepam 5 mg 12/28/19 15:01 12/28/19 15:30 Valium IVPUSH 12/28/19 15:02 5 mg ONETIME ONE Administration Diazepam Confirm 12/28/19 15:35 12/28/19 15:37 Valium Administered 12/28/19 15:36 Not Given Dose 5 mg .ROUTE .STK-MED ONE Oxycodone/Acetaminophen 2 tab 12/28/19 10:58 12/28/19 11:00 Percocet 325-5 Mg PO 2 tab ONETIME PRN Administration Pain Sodium Chloride 50 ml 12/28/19 12:31 12/28/19 15:36 Normal Saline FLUSH 12/28/19 12:32 Not Given ONETIME ONE Departure - Departure Clinical Impression: Fatigue - Discharge Information Instructions: Community-Acquired Pneumonia, Adult, [id number] Referrals: PCP,None [Primary Care Provider] - Forms: ED Department Discharge Additional Instructions: Discharge home. Follow up in the clinic next week if symptoms have not resolved. 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. Sepsis Event Note - Evaluation Sepsis Screening Result: No Definite Risk - Focused Exam Vital Signs: Vital Signs Temp Pulse Resp BP Pulse Ox 12/28/19 14:37 68 20 95 12/28/19 13:55 70 16 96 12/28/19 10:37 104/82 12/28/19 10:20 97.2 F 83 20 166/101 H 97 12/28/19 10:19 97.2 F 88 166/101 H 96 Date Exam was Performed: 12/28/19 Time Exam was Performed: 15:54 - My Orders Last 24 Hours: My Active Orders 12/28/19 11:00 EKG Documentation Completion [RC] ASDIRECTED Albuterol/Ipratropium [DuoNeb 3.0-0.5 MG/3 ML] 3 ml NEB Q8H 12/28/19 11:01 RT Aerosol Therapy [RC] ASDIRECTED 12/28/19 12:45 Iopamidol [Isovue-370 (76%)] 100 ml IV . DIRECTED 12/28/19 15:01 Sodium Chloride 0.9% [Normal Saline] 1,000 ml IV .BOLUS cefTRIAXone [Rocephin] 2 gm Sodium Chloride 0.9% [Normal Saline] 100 ml IV ONETIME - Assessment/Plan Last 24 Hours: My Active Orders 12/28/19 11:00 EKG Documentation Completion [RC] ASDIRECTED Albuterol/Ipratropium [DuoNeb 3.0-0.5 MG/3 ML] 3 ml NEB Q8H 12/28/19 11:01 RT Aerosol Therapy [RC] ASDIRECTED 12/28/19 12:45 Iopamidol [Isovue-370 (76%)] 100 ml IV . DIRECTED 12/28/19 15:01 Sodium Chloride 0.9% [Normal Saline] 1,000 ml IV .BOLUS cefTRIAXone [Rocephin] 2 gm Sodium Chloride 0.9% [Normal Saline] 100 ml IV ONETIME
[2019-12-28] MEDS ORDERED: diazePAM 5 MG/ML MDV ONE (15:35)
[2019-12-28] MEDS ORDERED: Morphine 2 MG/ML Syringe IVPUSH ONE (16:58)
[2019-12-28] MEDS ORDERED: Morphine 2 MG/ML Syringe ONE (17:06)
[2019-12-28] MEDS ORDERED: Promethazine 12.5 MG in Sodium Chloride 0.9% 50 ML IV PRN (18:28)
[2019-12-28] MEDS ORDERED: cefTRIAXone 1 GM in Sodium Chloride 0.9% 50 ML IV ONE (19:00)
--- NOTE | 2019-12-28 19:41 | ADMIT ---
HISTORY: This patient will be admitted from the emergency room with complaints of chest pain. The patient came in just complaining of not feeling well after he was here while he complained of chest pains. EKGs and initial troponin were normal. A second troponin is currently pending. The patient was also found to be mildly dehydrated. He was given about a 1-1/2 of IV fluids and stated that he felt better. Dr. Swain discharged this patient to me telling me that he felt he should be admitted for observation overnight, and if he is doing well in the morning, he could be discharged. PHYSICAL EXAMINATION: VITAL SIGNS: The patient's vital signs initially were 104/82 blood pressure, he has been afebrile. O2 sats have been running in the mid 90s on 4 L of oxygen. When I first saw the patient, his blood pressure was 147/76, O2 sats 93%. The patient will be admitted. He will be kept on IV fluids at the rate of 75 mL an hour. We will get another troponin level in the morning and see how he does by then. The only diagnosis that was otherwise discussed was chronic sinusitis and antibiotics have been called in for the patient for this. CRS/MODL /[id number]
[2019-12-29] MEDS ORDERED: LORazepam 2 MG/ML SDV IVPUSH PRN (02:03)
[2019-12-29] MEDS: Albuterol/Ipratropium 3.0-0.5 MG/3 ML Neb Soln NEB SCH ×3 (02:39→11:24)
[2019-12-29] MEDS ORDERED: PROPRANOLOL 80 MG PO SCH (10:45)
[2019-12-29] MEDS ORDERED: GLIPIZIDE 5 MG PO SCH (10:45)
--- NOTE | 2019-12-29 14:43 | DISCH ---
He is being discharged from inpatient care today. The patient was admitted through the emergency room last evening. He came in with complaints of not feeling well. He was found to be dehydrated, and at one point, he did complain of some chest pain, which triggered a cardiac workup which was negative. We did do a followup troponin this morning which was also normal. The patient has been doing well. His complaint this morning is only of his severe tremors. He has an internal brain stimulator that has been controlling his tremors, but it was found to have a battery. This is an internal stimulator and it is a surgical procedure to replace the battery. [facility] and [facility] staff who called back and informed us that the doctor that would be doing this, his office will be calling the patient at home to schedule a followup appointment to have the battery replaced. They are not sure when this will be. The patient has been eating okay today, but he has had required assistance with nursing staff for eating. He has been using the bathroom independently. PHYSICAL EXAMINATION: VITAL SIGNS: Have been good. Blood pressure today is 155/84, pulse 86, O2 sats 92%. He is afebrile. We also contacted [employer] and they will be supplying the patient with a meal a day for the short term timeframe until the patient can get in and have the battery changed, this will start tomorrow. Nursing staff will send food home with the patient that he can easily eat with tremors to get through the rest of the day. The patient is agreeable with this treatment plan. At this point in time, he is not complaining of any pain or discomfort. He just wants to have the tremors fixed again. CRS/MODL /[id number]
[2019-12-29] MEDS ORDERED: Non-Formulary Medication 1 Each (Atorvastatin Calcium [Atorvastatin Calcium] 40 MG) PO SCH (20:00)
[2019-12-29] MEDS ORDERED: Non-Formulary Medication 1 Each (Tamsulosin [Flomax] 0.4 MG) PO SCH (20:00)
== END 2019-12-29 13:30 | disposition home or self-care (01) ==
LOC: LB.ED 10:09 → LB.MS 18:25 → UNDOADMOB 19:00
PROVIDERS: ADMIT Physician Assistant; ATTEND Physician Assistant
DX: R25.1 Tremor, unspecified (principal); R53.83 Other fatigue; E86.0 Dehydration; R07.9 Chest pain, unspecified; N40.0 Benign prostatic hyperplasia without lower urinary tract symptoms; J32.9 Chronic sinusitis, unspecified; E11.9 Type 2 diabetes mellitus without complications; I10 Essential (primary) hypertension; E78.00 Pure hypercholesterolemia, unspecified; Z79.82 Long term (current) use of aspirin; Z79.899 Other long term (current) drug therapy; Z87.891 Personal history of nicotine dependence; Z96.9 Presence of functional implant, unspecified
CPT/HCPCS: 36415; 70486; 71046; 71260; 80053; 81001; 83036; 83605; 83880; 84484; 85025; 85379; 93005; 96361; 96365; 96374; 96375; 99217; 99218; 99285-25; A9270-GY; G0378; J0696; J1100; J2060; J2270; J3360; J7030; J7050; J7620-GY

== ENCOUNTER 2020-01-23 11:00 | Emergency (ER) | payer OTHER, MEDICAID ==
[~2020-01-23 11:00] MED LIST: predniSONE 10 MG Tab ONE
[2020-01-23] MEDS: LORazepam 1 MG Tab PO ONE (12:02)
[2020-01-23] MEDS: Ipratropium 0.02% 0.5 MG/2.5 ML Neb Soln NEB ONE (12:06)
--- NOTE | 2020-01-23 12:07 | EDM.PDOC ---
ED HPI GENERAL MEDICAL PROBLEM - General Chief Complaint: General Stated Complaint: GENERALIZED DISCOMFORT Time Seen by Provider: 01/23/20 11:00 Source of Information: Reports: Patient, RN History Limitations: Reports: Uncooperative - History of Present Illness INITIAL COMMENTS - FREE TEXT/NARRATIVE: Mihir is a 64-year-old male who presented to the emergency department today for evaluation of jitteriness. He states that he had a tele-visit with Dr. Lyle on Friday, and was provided with a trilogy inhaler sample. He used this first on Friday morning. Nearly immediately afterwards, he felt very jittery. He is really not well versed medications that he has tried, failed, and/or had intolerance to. His main issue is that his COPD has been acting up. He is interested in trying something that might help with his breathing. He really does not describe any chest discomfort, diaphoresis, nausea, exertional symptoms , or pleuritic issues. He seems to be having a bit of a cough. For the most part this seems to be nonproductive, and not really bothering him per se, and the way that he would like to try an antitussive. He states that he was on antibiotics for a couple weeks and really does not feel like he has infection. He really just wants to find the right puffer that will help him to feel better breathing. Is somewhat difficult to elicit a clear history to, and requires a lot of prompting. He seems to be somewhat inconvenienced and trying to determine exactly what his concerns are, but this is the baseline per an RN that knows him well. - Related Data Allergies Allergy/AdvReac Type Severity Reaction Status Date / Time No Known Allergies Allergy Verified 01/23/20 11:04 Home Meds: Home Meds Hydrocodone/Acetaminophen [Hydrocodon-Acetaminophn 10-300] 10 - 325 mg PO TID PRN 05/20/19 [History] Propranolol [Inderal] 80 mg PO BID 05/20/19 [History] Tamsulosin [Flomax] 0.4 mg PO DAILY 05/20/19 [History] atorvaSTATin Calcium [Atorvastatin Calcium] 40 mg PO BEDTIME 05/20/19 [History] Aspirin [Halfprin] 81 mg PO DAILY 07/24/19 [History] Fish Oil/[place]-3 Fatty Acids [Fish Oil 1,000 MG] 1 cap PO BID 07/24/19 [History] Omeprazole 20 mg PO DAILY 09/14/19 [History] predniSONE [Prednisone] 5 mg PO BID 09/14/19 [History] glipiZIDE [Glipizide ER] 5 mg PO DAILY 12/29/19 [History] Fluticasone/Umeclidin/Vilanter [Trelegy Ellipta 100-62.5-25] 1 puff INH DAILY [History] Past Medical History - Past Health History Medical/Surgical History: Denies Medical/Surgical History Other HEENT History: history of ruptured eardrum Cardiovascular History: Reports: High Cholesterol, Hypertension Other Respiratory History: COPD ? 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 ED EXAM, GENERAL - Physical Exam Exam: See Below General Appearance: Alert, WD/WN, No Apparent Distress Ears: Normal External Exam Nose: Normal Inspection Throat/Mouth: Normal Inspection Head: Atraumatic, Normocephalic Neck: Normal Inspection, Supple, Non-Tender, Full Range of Motion Respiratory/Chest: No Respiratory Distress, Lungs Clear, Normal Breath Sounds Cardiovascular: Regular Rate, Rhythm, No Murmur GI/Abdominal: Normal Bowel Sounds, Soft, Non-Tender Extremities: Normal Inspection, Normal Capillary Refill Neurological: Alert, Oriented Psychiatric: Other (He seems to have somewhat of a dry sense of humor, and is kind of difficult to read, but overall seems to be fairly agreeable to trying something aside from trilogy) Skin Exam: Warm, Dry, Intact Course - Vital Signs Text/Narrative:: Decided together, along with his nurse, it would be most reasonable to provide him with an auto Atrovent neb. This seemed to agree with him well. He was provided with a prescription for an Atrovent MDI to fill at his convenience if he continues to have issues with shortness of breath. He has certainly had more than adequate antimicrobial coverage. There does not appear to be a alternate subsequent etiology of his shortness of breath and he has had a very thorough work-up in this regard. He found this reassuring, and was discharged in good condition after explaining that although this is not an allergy, we may need to be a little bit more cognizant of his apparent bronco dilator intolerance. Given a gentle prednisone prescription as well to hopefully help with his breathing. He will return with any issues and is otherwise reliable to follow-up with his primary doctor as scheduled. Last Recorded V/S: Last Vital Signs Temp 97.2 F 01/23/20 11:18 Pulse 72 01/23/20 11:18 Resp 22 H 01/23/20 11:18 BP 138/63 01/23/20 11:18 Pulse Ox 96 01/23/20 11:18 - Orders/Labs/Meds Labs: Laboratory Tests 01/23/20 01/23/20 01/23/20 Range/Units 11:00 11:00 11:00 WBC 5.2 (4.0-11.0) K/uL RBC 5.27 (4.50-6.50) M/uL Hgb 14.9 (13.0-18.0) g/dL Hct 43.8 (40.0-54.0) % MCV 83 (76-96) fL MCH 28.3 (27.0-32.0) pg MCHC 34.0 (31.0-35.0) g/dL RDW 14.0 (11.0-16.0) % Plt Count 147 L (150-400) K/uL MPV 11.5 H (6.0-10.0) fL Neut % (Auto) 58.8 (45.0-70.0) % Lymph % (Auto) 24.1 (20.0-40.0) % [place] % (Auto) 12.1 H (3.0-10.0) % Eos % (Auto) 4.6 (1.0-5.0) % Baso % (Auto) 0.4 (0.0-0.5) % Neut # (Auto) 3.07 (2.00-7.50) K/uL Lymph # (Auto) 1.26 L (1.50-4.00) K/uL [place] # (Auto) 0.63 (0.20-0.80) K/uL Eos # (Auto) 0.24 (0.04-0.40) K/uL Baso # (Auto) 0.02 (0.02-0.10) K/uL D-Dimer, Quantitative 736 H (0-400) ng/mL Sodium (136-145) mmol/L Potassium (3.5-5.1) mmol/L Chloride (98-107) mmol/L Carbon Dioxide (21.0-32.0) mmol/L Anion Gap (5.0-15.0) mmol/L BUN (8-26) mg/dL Creatinine (0.70-1.30) mg/dL Est Cr Clr Drug Dosing mL/min Estimated GFR (MDRD) (>60) MLS/MIN BUN/Creatinine Ratio (6-25) Glucose (74-100) mg/dL Calcium (8.5-10.1) mg/dL Total Bilirubin (0.0-1.0) mg/dL AST (15-37) U/L ALT (12-78) U/L Alkaline Phosphatase (46-116) U/L Troponin I (0.000-0.060) ng/mL C-Reactive Protein (0.0-3.0) mg/L B-Natriuretic Peptide 108 (0-125) pg/mL Total Protein (6.4-8.2) g/dL Albumin (3.4-5.0) g/dL Globulin (2.2-4.2) g/dL Albumin/Globulin Ratio (0.8-2.0) Urine Color Urine Appearance (CLEAR) Urine pH (5.0-8.0) Ur Specific [place] (1.003-1.030) Urine Protein (NEGATIVE) mg/dL Urine Glucose (UA) (NEGATIVE) mg/dL Urine Ketones (NEGATIVE) mg/dL Urine Occult Blood (NEGATIVE) Urine Nitrite (NEGATIVE) Urine Bilirubin (NEGATIVE) Urine Urobilinogen (0.2-1.0) E.U./dL Ur Leukocyte Esterase (NEGATIVE) 01/23/20 01/23/20 Range/Units 11:00 13:06 WBC (4.0-11.0) K/uL RBC (4.50-6.50) M/uL Hgb (13.0-18.0) g/dL Hct (40.0-54.0) % MCV (76-96) fL MCH (27.0-32.0) pg MCHC (31.0-35.0) g/dL RDW (11.0-16.0) % Plt Count (150-400) K/uL MPV (6.0-10.0) fL Neut % (Auto) (45.0-70.0) % Lymph % (Auto) (20.0-40.0) % [place] % (Auto) (3.0-10.0) % Eos % (Auto) (1.0-5.0) % Baso % (Auto) (0.0-0.5) % Neut # (Auto) (2.00-7.50) K/uL Lymph # (Auto) (1.50-4.00) K/uL [place] # (Auto) (0.20-0.80) K/uL Eos # (Auto) (0.04-0.40) K/uL Baso # (Auto) (0.02-0.10) K/uL D-Dimer, Quantitative (0-400) ng/mL Sodium 138 (136-145) mmol/L Potassium 4.2 (3.5-5.1) mmol/L Chloride 102 (98-107) mmol/L Carbon Dioxide 24.6 (21.0-32.0) mmol/L Anion Gap 15.6 H (5.0-15.0) mmol/L BUN 11 (8-26) mg/dL Creatinine 1.34 H (0.70-1.30) mg/dL Est Cr Clr Drug Dosing 69.27 mL/min Estimated GFR (MDRD) 54 L (>60) MLS/MIN BUN/Creatinine Ratio 8.2 (6-25) Glucose 124 H (74-100) mg/dL Calcium 8.5 (8.5-10.1) mg/dL Total Bilirubin 0.6 D (0.0-1.0) mg/dL AST 41 H (15-37) U/L ALT 39 (12-78) U/L Alkaline Phosphatase 85 (46-116) U/L Troponin I < 0.017 (0.000-0.060) ng/mL C-Reactive Protein 13.6 H (0.0-3.0) mg/L B-Natriuretic Peptide (0-125) pg/mL Total Protein 6.6 (6.4-8.2) g/dL Albumin 3.1 L (3.4-5.0) g/dL Globulin 3.5 (2.2-4.2) g/dL Albumin/Globulin Ratio 0.9 (0.8-2.0) Urine Color Yellow Urine Appearance Cloudy (CLEAR) Urine pH 5.5 (5.0-8.0) Ur Specific [place] 1.025 (1.003-1.030) Urine Protein Negative (NEGATIVE) mg/dL Urine Glucose (UA) Negative (NEGATIVE) mg/dL Urine Ketones Negative (NEGATIVE) mg/dL Urine Occult Blood Negative (NEGATIVE) Urine Nitrite Negative (NEGATIVE) Urine Bilirubin Negative (NEGATIVE) Urine Urobilinogen 0.2 (0.2-1.0) E.U./dL Ur Leukocyte Esterase Negative (NEGATIVE) Meds: Medications Discontinued Medications Generic Name Dose Route Start Last Admin Trade Name Freq PRN Reason Stop Dose Admin Ipratropium [place] 0.5 mg 01/23/20 11:56 01/23/20 12:06 Atrovent NEB 01/23/20 11:57 0.5 mg ONETIME ONE Administration Lorazepam 1 mg 01/23/20 11:56 01/23/20 12:02 Ativan PO 01/23/20 11:57 1 mg ONETIME ONE Administration Lorazepam Confirm 01/23/20 12:10 01/23/20 12:44 Ativan Administered 01/23/20 12:11 Not Given Dose 1 mg .ROUTE .STK-MED ONE Prednisone 150 mg 01/23/20 11:00 Prednisone .ROUTE 01/23/20 11:01 .STK-MED ONE Departure - Departure Time of Disposition: 11:15 Disposition: Home, Self-Care 01 Clinical Impression: Medication side effect - Discharge Information Instructions: Ipratropium aerosol inhaler, Chronic Obstructive Pulmonary Disease, How to Use a Metered Dose Inhaler, Prednisone tablets Referrals: PCP,None [Primary Care Provider] - Forms: ED Department Discharge Care Plan Goals: Take prednisone 3 tablets once a day for 5 days. Take this with food. Sepsis Event Note - Evaluation Sepsis Screening Result: No Definite Risk - Focused Exam Date Exam was Performed: 01/26/20 Time Exam was Performed: 01:07
[2020-01-23] MEDS: LORazepam 1 MG Tab ONE (12:44)
--- NOTE | 2020-01-24 08:39 | CT ---
DATE OF SERVICE: 01/23/20 CLINICAL DATA: r/o PE ENHANCED CHEST CT: Multislice acquisition through the chest with IV contrast was performed. Comparison is made to a prior exam dated 12/28/19. Motion artifact does degrade image quality. No evidence of PE. No pneumothorax. No pleural effusions. No aortic aneurysm or dissection. There are atelectatic changes in the dependent portion of both lungs. There is a linear density in the right middle lobe consistent with linear atelectasis. There is also a linear density in the lingular segment of the left upper lobe consistent with linear atelectasis. No areas of consolidation. The heart size is normal. No significant pericardial effusion. No hilar or mediastinal adenopathy. There is diffuse fatty infiltration of the liver. The exam is otherwise unchanged from the prior. IMPRESSION: Negative for PE. Other findings as discussed above. [id number] [facility]
== END 2020-01-23 13:40 | disposition home or self-care (01) ==
LOC: LB.ED 11:00
DX: R05 Cough (principal); T50.905A Adverse effect of unspecified drugs, medicaments and biological substances, initial encounter; I10 Essential (primary) hypertension; E11.9 Type 2 diabetes mellitus without complications; E78.00 Pure hypercholesterolemia, unspecified; Z87.891 Personal history of nicotine dependence; Z79.82 Long term (current) use of aspirin; Z79.84 Long term (current) use of oral hypoglycemic drugs; Z79.899 Other long term (current) drug therapy
CPT/HCPCS: 36415; 71260; 80053; 81003; 83880; 84484; 85025; 85379; 86140; 93005; 99284-25; A9270-GY

== ENCOUNTER 2020-10-27 02:26 | Emergency (ER) | payer OTHER ==
--- NOTE | 2020-10-27 03:03 | EDM.PDOC ---
ED HPI GENERAL MEDICAL PROBLEM - General Chief Complaint: Chest Pain Stated Complaint: chest pain Time Seen by Provider: 10/27/20 02:50 Source of Information: Reports: Patient History Limitations: Reports: No Limitations - History of Present Illness INITIAL COMMENTS - FREE TEXT/NARRATIVE: patient presented to the ER with a c/o chest discomfort. Started an hour ago, heavy-like feeling on the chest. Woke up from sleep with symptoms. No h/o similar symptoms. No radiation, but mild SOB. Also reports head cold symptoms, stuffed nose and loss of sense of smell and taste for few days No fever or chills, but reports cough for 1 day. No h/o CAD, but h/o DM and dyslipidemia. Also h/o brain stimulator due to arms tremors/shakiness. Doesn't use CPAP at home. h/o smoking in the past - quit smoking 5 yrs ago. Symptoms resolved in the ER Onset: Today Duration: Minutes: (45) Location: Reports: Chest Quality: Reports: Pressure Severity: Moderate Improves with: Reports: None Worsens with: Reports: None Associated Symptoms: Reports: No Other Symptoms - Related Data Allergies Allergy/AdvReac Type Severity Reaction Status Date / Time No Known Allergies Allergy Verified 01/23/20 11:04 Home Meds: Home Meds RX: Hydrocodone/Acetaminophen [Hydrocodon-Acetaminophn 10-300] 10 - 325 mg PO TID PRN 05/20/19 [History] RX: Propranolol [Inderal] 80 mg PO BID 05/20/19 [History] RX: Tamsulosin [Flomax] 0.4 mg PO DAILY 05/20/19 [History] atorvaSTATin Calcium [Atorvastatin Calcium] 40 mg PO BEDTIME 05/20/19 [History] Aspirin [Halfprin] 81 mg PO DAILY 07/24/19 [History] Fish Oil/[place]-3 Fatty Acids [Fish Oil 1,000 MG] 1 cap PO BID 07/24/19 [History] RX: Omeprazole 20 mg PO DAILY 09/14/19 [History] predniSONE [Prednisone] 5 mg PO BID 09/14/19 [History] RX: glipiZIDE [Glipizide ER] 5 mg PO DAILY 12/29/19 [History] Fluticasone/Umeclidin/[place] [Trelegy Ellipta 100-62.5-25] 1 puff INH DAILY 01/23/20 [History] Past Medical History - Past Health History Medical/Surgical History: Denies Medical/Surgical History Other HEENT History: history of ruptured eardrum Cardiovascular History: Reports: High Cholesterol, Hypertension Other Respiratory History: COPD ? 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 Denies: Fever, Chills, Malaise HEENT: Reports: No Symptoms Respiratory: Reports: Shortness of Breath, Cough Cardiovascular: Reports: Chest Pain Endocrine: Reports: No Symptoms GI/Abdominal: Reports: No Symptoms Musculoskeletal: Reports: No Symptoms Skin: Reports: No Symptoms Neurological: Reports: No Symptoms ED EXAM, GENERAL - Physical Exam Exam: See Below Exam Limited By: No Limitations General Appearance: Alert, WD/WN, No Apparent Distress Eye Exam: Bilateral Eye: PERRL Respiratory/Chest: No Respiratory Distress, Lungs Clear, Normal Breath Sounds, No Accessory Muscle Use Cardiovascular: Normal Peripheral Pulses, Regular Rate, Rhythm GI/Abdominal: Normal Bowel Sounds, Soft, Non-Tender, No Organomegaly Extremities: Pedal Edema Course - Vital Signs Last Recorded V/S: Last Vital Signs Temp 36.2 C 10/27/20 02:50 Pulse 64 10/27/20 02:50 Resp 22 H 10/27/20 02:50 BP 111/58 L 10/27/20 03:25 Pulse Ox 96 10/27/20 02:50 - Orders/Labs/Meds Orders: Active Orders 24 hr Category Date Time Status EKG Documentation Completion [RC] ASDIRECTED Care 10/27/20 02:47 Active Labs: Laboratory Tests 10/27/20 10/27/20 10/27/20 Range/Units 02:50 02:50 02:50 WBC 7.3 (4.0-11.0) K/uL RBC 5.51 (4.50-6.50) M/uL Hgb 15.8 (13.0-18.0) g/dL Hct 46.1 (40.0-54.0) % MCV 84 (76-96) fL MCH 28.7 (27.0-32.0) pg MCHC 34.3 (31.0-35.0) g/dL RDW 14.1 (11.0-16.0) % Plt Count 119 L (150-400) K/uL MPV 11.4 H (6.0-10.0) fL Neut % (Auto) 46.7 (45.0-70.0) % Lymph % (Auto) 39.0 (20.0-40.0) % [place] % (Auto) 10.1 H (3.0-10.0) % Eos % (Auto) 3.8 (1.0-5.0) % Baso % (Auto) 0.4 (0.0-0.5) % Neut # (Auto) 3.43 (2.00-7.50) K/uL Lymph # (Auto) 2.86 (1.50-4.00) K/uL [place] # (Auto) 0.74 (0.20-0.80) K/uL Eos # (Auto) 0.28 (0.04-0.40) K/uL Baso # (Auto) 0.03 (0.02-0.10) K/uL D-Dimer, Quantitative (0-400) ng/mL Sodium 145 (136-145) mmol/L Potassium 4.0 (3.5-5.1) mmol/L Chloride 107 (98-107) mmol/L Carbon Dioxide 31.4 (21.0-32.0) mmol/L Anion Gap 10.6 (5.0-15.0) mmol/L BUN 10 D (8-26) mg/dL Creatinine 1.41 H (0.70-1.30) mg/dL Est Cr Clr Drug Dosing 64.98 mL/min Estimated GFR (MDRD) 51 L (>60) MLS/MIN BUN/Creatinine Ratio 7.1 (6-25) Glucose 116 H (74-100) mg/dL Calcium 8.7 (8.5-10.1) mg/dL Total Bilirubin 0.4 D (0.0-1.0) mg/dL AST 20 (15-37) U/L ALT 38 (12-78) U/L Alkaline Phosphatase 91 (46-116) U/L Troponin I < 0.017 (0.000-0.060) ng/mL Total Protein 7.0 (6.4-8.2) g/dL Albumin 3.5 (3.4-5.0) g/dL Globulin 3.5 (2.2-4.2) g/dL Albumin/Globulin Ratio 1.0 (0.8-2.0) SARS-CoV-2 RNA ([place]) (NEGATIVE) 10/27/20 10/27/20 Range/Units 02:50 03:04 WBC (4.0-11.0) K/uL RBC (4.50-6.50) M/uL Hgb (13.0-18.0) g/dL Hct (40.0-54.0) % MCV (76-96) fL MCH (27.0-32.0) pg MCHC (31.0-35.0) g/dL RDW (11.0-16.0) % Plt Count (150-400) K/uL MPV (6.0-10.0) fL Neut % (Auto) (45.0-70.0) % Lymph % (Auto) (20.0-40.0) % [place] % (Auto) (3.0-10.0) % Eos % (Auto) (1.0-5.0) % Baso % (Auto) (0.0-0.5) % Neut # (Auto) (2.00-7.50) K/uL Lymph # (Auto) (1.50-4.00) K/uL [place] # (Auto) (0.20-0.80) K/uL Eos # (Auto) (0.04-0.40) K/uL Baso # (Auto) (0.02-0.10) K/uL D-Dimer, Quantitative 226 (0-400) ng/mL Sodium (136-145) mmol/L Potassium (3.5-5.1) mmol/L Chloride (98-107) mmol/L Carbon Dioxide (21.0-32.0) mmol/L Anion Gap (5.0-15.0) mmol/L BUN (8-26) mg/dL Creatinine (0.70-1.30) mg/dL Est Cr Clr Drug Dosing mL/min Estimated GFR (MDRD) (>60) MLS/MIN BUN/Creatinine Ratio (6-25) Glucose (74-100) mg/dL Calcium (8.5-10.1) mg/dL Total Bilirubin (0.0-1.0) mg/dL AST (15-37) U/L ALT (12-78) U/L Alkaline Phosphatase (46-116) U/L Troponin I (0.000-0.060) ng/mL Total Protein (6.4-8.2) g/dL Albumin (3.4-5.0) g/dL Globulin (2.2-4.2) g/dL Albumin/Globulin Ratio (0.8-2.0) SARS-CoV-2 RNA ([place]) Positive H (NEGATIVE) Meds: Medications Discontinued Medications Generic Name Dose Route Start Last Admin Trade Name Freq PRN Reason Stop Dose Admin Aspirin 324 mg 10/27/20 03:01 10/27/20 03:26 Aspirin PO 10/27/20 03:02 324 mg ONETIME ONE Administration Nitroglycerin 0.4 mg 10/27/20 03:02 10/27/20 03:25 Nitrostat SL 10/27/20 03:03 0.4 mg ONETIME ONE Administration - Re-Assessments/Exams Free Text/Narrative Re-Assessment/Exam: upon arrival to the ER, was connected to a monitor EKG - no acute ischemic changes. labs were ordered including CBC, Trop, CBM and dimer. Normal trop and DDimer - ruled out PE and NC. COVID test was +ve. Patient didn't require any O2 and vital WNL. decision to treat patient as outpatient. Departure - Departure Time of Disposition: 03:59 Disposition: Home, Self-Care 01 Condition: Good Clinical Impression: COVID-19, Chest fullness Referrals: PCP,None [Primary Care Provider] - Forms: ED Department Discharge Sepsis Event Note (ED) - Focused Exam Vital Signs: Vital Signs Temp Pulse Resp BP BP Pulse Ox 10/27/20 03:25 111/58 L 10/27/20 02:50 36.2 C 64 22 H 159/77 H 96 - Problem List & Annotations (1) Chest fullness SNOMED Code(s): 636247291 Code(s): R07.89 - OTHER CHEST PAIN Status: Acute Priority: Medium Current Visit: Yes (2) COVID-19 SNOMED Code(s): 220160900 Code(s): U07.1 - COVID-19 Status: Acute Priority: Medium Current Visit: Yes - Problem List Review Problem List Initiated/Reviewed/Updated: Yes - My Orders Last 24 Hours: My Active Orders 10/27/20 02:47 EKG Documentation Completion [RC] ASDIRECTED - Assessment/Plan Last 24 Hours: My Active Orders 10/27/20 02:47 EKG Documentation Completion [RC] ASDIRECTED Plan: - start taking tylenol as needed for fever - increase fluids intake - start taking Vitamin C and D on a daily basis - return to the ER if symptoms got worse or any concerns. - Use Oxygen meter to check on your Oxygen saturation. Return to the ER if saturation is less than 90%.
[2020-10-27] MEDS: Nitroglycerin 0.4 MG Tab.SL SL ONE (03:25)
[2020-10-27] MEDS: Aspirin 81 MG Tab.Chew PO ONE (03:26)
== END 2020-10-27 04:20 | disposition home or self-care (01) ==
LOC: LB.ED 02:26
DX: U07.1 COVID-19 (principal); I10 Essential (primary) hypertension; E11.9 Type 2 diabetes mellitus without complications; N40.0 Benign prostatic hyperplasia without lower urinary tract symptoms; E78.5 Hyperlipidemia, unspecified; Z79.82 Long term (current) use of aspirin; Z79.84 Long term (current) use of oral hypoglycemic drugs; Z79.899 Other long term (current) drug therapy
CPT/HCPCS: 36415; 80053; 84484; 85025; 85379; 93005; 99284; 99285-25; A9270-GY; U0002

== ENCOUNTER 2021-10-07 17:25 | Emergency (ER) | payer MEDICARE, OTHER ==
--- NOTE | 2021-10-07 17:52 | EDM.PDOC ---
ED HPI GENERAL MEDICAL PROBLEM - General Chief Complaint: General Stated Complaint: short of breath Time Seen by Provider: 10/07/21 17:30 Source of Information: Reports: Patient, RN Notes Reviewed History Limitations: Reports: No Limitations - History of Present Illness INITIAL COMMENTS - FREE TEXT/NARRATIVE: This patient presents to the emergency room requesting medication to make him stop falling down and to make him stop urinating. 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 He is wanting medication to make this stop happening now but has not contacted his neurologist for assistance. He is also complaining of not sleeping at night because he is getting up every hour and a half to urinate. He does not complain about daytime frequency, just nighttime frequency. He states he urinates a small amount each time. He is requesting medication to stop that. Patient is also states he has had recent illness with congestion and a cough. He denies fever but is complaining of shortness of breath with a cough. Patient became visibly upset when asked to wear a mask in the exam room. Patient became belligerent when asked if he had gotten a Covid vaccination. Patient refused to be tested for Covid or influenza. He denies change in his appetite, vomiting, diarrhea. Patient appears quite impatient with all questions. - Related Data Allergies Allergy/AdvReac Type Severity Reaction Status Date / Time No Known Allergies Allergy Verified 01/23/20 11:04 Home Meds: Home Meds Hydrocodone/Acetaminophen [Hydrocodon-Acetaminophn 10-300] 10 - 325 mg PO TID PRN 05/20/19 [History] Propranolol [Inderal] 80 mg PO BID 05/20/19 [History] Tamsulosin [Flomax] 0.4 mg PO DAILY 05/20/19 [History] atorvaSTATin Calcium [Atorvastatin Calcium] 40 mg PO BEDTIME 05/20/19 [History] Aspirin [Halfprin] 81 mg PO DAILY 07/24/19 [History] Fish Oil/[place]-3 Fatty Acids [Fish Oil 1,000 MG] 1 cap PO BID 07/24/19 [History] Omeprazole 20 mg PO DAILY 09/14/19 [History] predniSONE [Prednisone] 5 mg PO BID 09/14/19 [History] glipiZIDE [Glipizide ER] 5 mg PO DAILY 12/29/19 [History] Fluticasone/Umeclidin/Vilanter [Trelegy Ellipta 100-62.5-25] 1 puff INH DAILY 01/23/20 [History] Ascorbic Acid [Vitamin C] 1,000 mg PO DAILY #30 tablet.er 10/27/20 [Rx] Cholecalciferol (Vitamin D3) [Vitamin D3] 250 mcg PO DAILY #30 capsule 10/27/20 [Rx] Past Medical History - Past Health History Medical/Surgical History: Denies Medical/Surgical History Other HEENT History: history of ruptured eardrum Cardiovascular History: Reports: High Cholesterol, Hypertension Other Respiratory History: COPD ? Genitourinary History: Reports: BPH Endocrine/Metabolic History: Reports: Diabetes, Type II Other Endocrine/Metabolic History: Newly diagnosed-olipizide - Infectious Disease History Infectious Disease History: Reports: Chicken Pox, Measles, Mumps - Past Surgical History Other Neurological Surgeries/Procedures: Has a deep brain stimulator implanted to keep him from shaking Social & Family History - Family History Family Medical History: No Pertinent Family History - Caffeine Use Caffeine Use: Reports: Coffee Caffeine Use Comment: soda ED ROS GENERAL - Review of Systems Review Of Systems: See Below Constitutional: Denies: Fever, Chills, Decreased Appetite HEENT: Denies: Ear Pain, Throat Pain Respiratory: Reports: Shortness of Breath, Cough. Denies: Wheezing Cardiovascular: Reports: Dyspnea on Exertion. Denies: Chest Pain GI/Abdominal: Reports: No Symptoms Musculoskeletal: Reports: No Symptoms Skin: Reports: No Symptoms Neurological: Reports: Difficulty Walking, Other (Patient states he isn't able to balance himself). Denies: Headache Psychiatric: Reports: Agitation ED EXAM, GENERAL - Physical Exam Exam: See Below Exam Limited By: Uncooperative (With mask guidelines, questions) General Appearance: Alert, No Apparent Distress, Mild Distress Eye Exam: Bilateral Eye: EOMI, Normal Inspection, PERRL Ears: Normal External Exam, Hearing Loss Nose: Normal Inspection Throat/Mouth: Normal Inspection Head: Atraumatic, Normocephalic Neck: Normal Inspection, Full Range of Motion Respiratory/Chest: No Respiratory Distress, Decreased Breath Sounds (Mildly decreased in bilateral bases ), Rales (Intermittent rales), Accessory Muscle Use. No: Wheezing Cardiovascular: Regular Rate, Rhythm Neurological: Alert, Oriented Psychiatric: Other (Combative and intolerant) Skin Exam: Warm, Dry, Intact Course - Vital Signs Last Recorded V/S: Last Vital Signs Temp 36.5 C 10/07/21 17:30 Pulse 89 10/07/21 17:30 Resp 20 10/07/21 17:30 BP 144/99 H 10/07/21 17:30 Pulse Ox 95 10/07/21 17:30 - Orders/Labs/Meds Orders: Active Orders 24 hr Category Date Time Status UA RFX MAGI AND CULT IF INDIC [URIN] Stat Lab 10/07/21 17:47 Ordered - Radiology Interpretation Free Text/Narrative:: This patient presents to the emergency room for evaluation of several problems: Requesting medication for his balance, requesting medication to stop urination, and states that he has had recent illness of nasal congestion and cough. Patient was very impatient and intolerant with all questions asked. He was extremely unhappy when asked to wear a mask while in the exam room, and when he was asked about Covid vaccination and testing. Physical exam was completed identifying a likely viral upper respiratory tract illness. I informed him there was no medication for his balance at this time; he would need to go to his primary care provider and get a referral to neurology to have his deep brain stimulator evaluated. Patient states he sees Dr. Grewal; however, has not had a visit with him in the past 14 months. Patient asked for medication to stop the urination that he has been having during the night. I informed the patient that there was not a specific medication for this and he said he needed an antibiotic. I did explain to him that if he had a urinary tract infection, it would be treated with an antibiotic. I ordered a urinalysis for him and explained that we would be collecting that. When the nurse went back into the room to collect the urinalysis the patient stated he was leaving. Departure - Departure Time of Disposition: 18:10 Disposition: Admitted As Inpatient 67 Clinical Impression: Left before treatment completed - Discharge Information Forms: ED Department Discharge Sepsis Event Note (ED) - Focused Exam Vital Signs: Vital Signs Temp Pulse Resp BP Pulse Ox 10/07/21 17:30 36.5 C 89 20 144/99 H 95 - My Orders Last 24 Hours: My Active Orders 10/07/21 17:47 UA RFX MAGI AND CULT IF INDIC [URIN] Stat - Assessment/Plan Last 24 Hours: My Active Orders 10/07/21 17:47 UA RFX MAGI AND CULT IF INDIC [URIN] Stat
== END 2021-10-07 18:01 | disposition left against medical advice (07) ==
LOC: LB.ED 17:25
DX: R06.02 Shortness of breath (principal); Z53.8 Procedure and treatment not carried out for other reasons
CPT/HCPCS: 99283

== ENCOUNTER 2021-10-13 11:32 | Inpatient (IN) | payer MEDICARE ==
[2021-10-13] MEDS ORDERED: Albuterol/Ipratropium 3.0-0.5 MG/3 ML Neb Soln NEB ONE (11:52)
[2021-10-13] MEDS ORDERED: Sodium Chloride 0.9% 10 ML Syringe FLUSH PRN (13:18)
[2021-10-13] MEDS ORDERED: Sodium Chloride 0.9% 1,000 ML IV SCH (13:30)
[2021-10-13] MEDS ORDERED: Pantoprazole 80 MG in Sodium Chloride 0.9% 100 ML IV SCH (13:45)
[2021-10-13] MEDS: REMDESIVIR 100 MG in Sodium Chloride 0.9% 250 ML IV SCH (14:30)
[2021-10-13] MEDS: Dexamethasone 4 MG Tab PO SCH (14:30)
[2021-10-13] MEDS: Albuterol/Ipratropium 3.0-0.5 MG/3 ML Neb Soln NEB SCH ×3 (14:31→19:45)
[2021-10-13] MEDS: Enoxaparin 40 MG/0.4 ML Syringe SUBCUT SCH (15:48)
[2021-10-13] MEDS ORDERED: REMDESIVIR 100 MG in Sodium Chloride 0.9% 250 ML IV ONE (17:22)
[2021-10-13] MEDS ORDERED: atorvaSTATin 40 MG Tab ONE (20:33)
[2021-10-13] MEDS: Propranolol 20 MG Tab PO SCH (20:54)
[2021-10-13] MEDS: Acetaminophen/HYDROcodone 325-10 MG Tab PO PRN (20:54)
[2021-10-13] MEDS: atorvaSTATin 40 MG Tab PO SCH (20:55)
[2021-10-14] MEDS: Albuterol/Ipratropium 3.0-0.5 MG/3 ML Neb Soln NEB SCH ×4 (01:30→19:19)
[2021-10-14] MEDS ORDERED: Colchicine 0.6 MG Tab PO SCH (08:00)
[2021-10-14] MEDS ORDERED: Pantoprazole 40 MG Vial ONE (08:07)
[2021-10-14] MEDS: Oxybutynin 5 MG Tab.ER PO SCH (08:09)
[2021-10-14] MEDS: glipiZIDE 5 MG Tab.ER PO SCH (08:09)
[2021-10-14] MEDS: Colchicine 0.6 MG Tab PO SCH ×2 (08:10→19:18)
[2021-10-14] MEDS: Aspirin 81 MG Tab.EC PO SCH (08:10)
[2021-10-14] MEDS: Propranolol 20 MG Tab PO SCH ×2 (08:12→19:18)
[2021-10-14] MEDS: Dexamethasone 4 MG Tab PO SCH (08:13)
[2021-10-14] MEDS: Enoxaparin 40 MG/0.4 ML Syringe SUBCUT SCH (08:13)
[2021-10-14] MEDS: Pantoprazole 40 MG in Sodium Chloride 0.9% 10 ML IV SCH ×2 (08:14→19:21)
[2021-10-14] MEDS: Acetaminophen/HYDROcodone 325-10 MG Tab PO PRN ×2 (08:33→16:49)
[2021-10-14] MEDS: REMDESIVIR 100 MG in Sodium Chloride 0.9% 250 ML IV SCH (13:49)
[2021-10-14] MEDS: atorvaSTATin 40 MG Tab PO SCH (19:18)
[2021-10-15] MEDS: Albuterol/Ipratropium 3.0-0.5 MG/3 ML Neb Soln NEB SCH ×4 (01:28→20:36)
[2021-10-15] MEDS: Pantoprazole 40 MG in Sodium Chloride 0.9% 10 ML IV SCH (07:32)
[2021-10-15] MEDS: Colchicine 0.6 MG Tab PO SCH ×2 (07:36→20:36)
[2021-10-15] MEDS: Oxybutynin 5 MG Tab.ER PO SCH (07:36)
[2021-10-15] MEDS: Propranolol 20 MG Tab PO SCH ×2 (07:37→20:36)
[2021-10-15] MEDS: Aspirin 81 MG Tab.EC PO SCH (07:38)
[2021-10-15] MEDS: Dexamethasone 4 MG Tab PO SCH (07:38)
[2021-10-15] MEDS: glipiZIDE 5 MG Tab.ER PO SCH (07:38)
[2021-10-15] MEDS: Acetaminophen/HYDROcodone 325-10 MG Tab PO PRN (07:44)
[2021-10-15] MEDS: Enoxaparin 40 MG/0.4 ML Syringe SUBCUT SCH (07:46)
[2021-10-15] MEDS: REMDESIVIR 100 MG in Sodium Chloride 0.9% 250 ML IV SCH (13:51)
[2021-10-15] MEDS ORDERED: Carboxymethylcellulose Sodium 1% Ophth Gel 15 ML Bottle EYEBOTH PRN (18:04)
[2021-10-15] MEDS: atorvaSTATin 40 MG Tab PO SCH (20:36)
[2021-10-16] MEDS: Albuterol/Ipratropium 3.0-0.5 MG/3 ML Neb Soln NEB SCH ×5 (02:17→19:15)
[2021-10-16] MEDS: glipiZIDE 5 MG Tab.ER PO SCH (07:44)
[2021-10-16] MEDS: Colchicine 0.6 MG Tab PO SCH ×2 (07:45→19:15)
[2021-10-16] MEDS: Propranolol 20 MG Tab PO SCH ×2 (07:45→19:14)
[2021-10-16] MEDS: Aspirin 81 MG Tab.EC PO SCH (07:45)
[2021-10-16] MEDS: Oxybutynin 5 MG Tab.ER PO SCH (07:45)
[2021-10-16] MEDS: Omeprazole 20 MG Cap.CR PO SCH (07:46)
[2021-10-16] MEDS: Acetaminophen/HYDROcodone 325-10 MG Tab PO PRN ×2 (07:46→17:39)
[2021-10-16] MEDS: Enoxaparin 40 MG/0.4 ML Syringe SUBCUT SCH (07:47)
[2021-10-16] MEDS: Dexamethasone 4 MG Tab PO SCH (07:47)
[2021-10-16] MEDS ORDERED: REMDESIVIR 100 MG in Sodium Chloride 0.9% 250 ML IV SCH (15:14)
[2021-10-16] MEDS: atorvaSTATin 40 MG Tab PO SCH (19:15)
[2021-10-17] MEDS: Albuterol/Ipratropium 3.0-0.5 MG/3 ML Neb Soln NEB SCH ×2 (01:40→08:32)
[2021-10-17] MEDS ORDERED: glipiZIDE 5 MG Tab.ER PO SCH (08:00)
[2021-10-17] MEDS: Enoxaparin 40 MG/0.4 ML Syringe SUBCUT SCH (08:32)
[2021-10-17] MEDS: Propranolol 20 MG Tab PO SCH (08:32)
[2021-10-17] MEDS: glipiZIDE 5 MG Tab.ER PO SCH (08:33)
[2021-10-17] MEDS: Aspirin 81 MG Tab.EC PO SCH (08:33)
[2021-10-17] MEDS: Omeprazole 20 MG Cap.CR PO SCH (08:33)
[2021-10-17] MEDS: Oxybutynin 5 MG Tab.ER PO SCH (08:33)
[2021-10-17] MEDS: Colchicine 0.6 MG Tab PO SCH (08:33)
[2021-10-17] MEDS: Dexamethasone 4 MG Tab PO SCH (08:34)
[2021-10-17] MEDS: Acetaminophen/HYDROcodone 325-10 MG Tab PO PRN (08:35)
[2021-10-17] MEDS ORDERED: REMDESIVIR 100 MG in Sodium Chloride 0.9% 250 ML IV SCH (09:00)
== END 2021-10-17 10:15 | disposition home or self-care (01) | DRG 177 ==
LOC: LB.ED 11:32 → LB.MS 13:29 → UNDOADMIN 15:03 → LB.MS 15:03
PROVIDERS: ADMIT Physician Assistant; ATTEND Physician Assistant
PROC: 8E0ZXY6 Isolation (ICD-10-PCS; principal; 2021-10-13)
PROC: XW033E5 Introduction of Remdesivir Anti-infective into Peripheral Vein, Percutaneous Approach, New Technology Group 5 (ICD-10-PCS; 2021-10-13)
PROC: 3E0DX3Z Introduction of Anti-inflammatory into Mouth and Pharynx, External Approach (ICD-10-PCS; 2021-10-13)
DX: U07.1 COVID-19 (principal); J12.82 Pneumonia due to coronavirus disease 2019; J96.01 Acute respiratory failure with hypoxia; E78.00 Pure hypercholesterolemia, unspecified; E11.9 Type 2 diabetes mellitus without complications; N40.0 Benign prostatic hyperplasia without lower urinary tract symptoms; I10 Essential (primary) hypertension; E78.5 Hyperlipidemia, unspecified; Z79.82 Long term (current) use of aspirin; Z79.899 Other long term (current) drug therapy; Z79.84 Long term (current) use of oral hypoglycemic drugs
CPT/HCPCS: 36415; 71045; 80048; 80076; 81001; 85025; 85379; 87804 ×2; 99285; J7050; J8540; U0002; 99223; 99232; 99238; A9270-GY; C9113; J1650; J7030; J7620-GY

== ENCOUNTER 2021-11-02 09:21 | Emergency (ER) | payer OTHER, MEDICARE ==
[2021-11-02] MEDS ORDERED: Oxymetazoline 0.05% Nasal Spray 15 ML Bottle ONE (10:31)
[2021-11-02] MEDS ORDERED: Acetaminophen/HYDROcodone 325-10 MG Tab PO ONE (12:36)
[2021-11-02] MEDS ORDERED: Acetaminophen/HYDROcodone 325-10 MG Tab ONE (12:48)
== END 2021-11-02 11:03 | disposition home or self-care (01) ==
LOC: LB.ED 09:21
DX: R04.0 Epistaxis (principal); E78.00 Pure hypercholesterolemia, unspecified; I10 Essential (primary) hypertension; E11.9 Type 2 diabetes mellitus without complications; Z79.82 Long term (current) use of aspirin; Z79.84 Long term (current) use of oral hypoglycemic drugs; Z79.899 Other long term (current) drug therapy
CPT/HCPCS: 30903; 30905; 36415; 85025; 99283-25; A9270-GY

== ENCOUNTER 2021-11-03 11:30 | Emergency (ER) | payer OTHER, MEDICARE ==
[2021-11-03] MEDS ORDERED: Oxymetazoline 0.05% Nasal Spray 15 ML Bottle NAS ONE (11:54)
[2021-11-03] MEDS ORDERED: hydrOXYzine HCl 25 MG Tab ONE (12:00)
== END 2021-11-03 12:15 | disposition home or self-care (01) ==
LOC: LB.ED 11:30
DX: J34.89 Other specified disorders of nose and nasal sinuses (principal); E78.00 Pure hypercholesterolemia, unspecified; I10 Essential (primary) hypertension; N40.0 Benign prostatic hyperplasia without lower urinary tract symptoms; E11.9 Type 2 diabetes mellitus without complications; Z79.82 Long term (current) use of aspirin; Z79.899 Other long term (current) drug therapy
CPT/HCPCS: 99282; A9270

== ENCOUNTER 2022-08-13 09:42 | Emergency (ER) | payer MEDICARE, OTHER | END 2022-08-13 11:39 | disposition home or self-care (01) | LOC: LB.ED 09:42 | DX: N39.0 Urinary tract infection, site not specified (principal); E78.00 Pure hypercholesterolemia, unspecified; I10 Essential (primary) hypertension; E11.9 Type 2 diabetes mellitus without complications; E66.9 Obesity, unspecified; Z68.33 Body mass index [BMI] 33.0-33.9, adult; Z79.82 Long term (current) use of aspirin; Z79.84 Long term (current) use of oral hypoglycemic drugs; Z79.899 Other long term (current) drug therapy | CPT/HCPCS: 81001; 99283 ==

== ENCOUNTER 2022-11-01 09:37 | Inpatient (IN) | payer OTHER, MEDICARE ==
[2022-11-01] MEDS ORDERED: Sodium Chloride 0.9% 10 ML Syringe FLUSH PRN (10:04)
[2022-11-01 11:14] LABS: ESTIMATED GFR 73 mL/min (>60); TROPONIN I HIGH SENSITIVITY 8.1 pg/ml (<=60.4)
[2022-11-01] MEDS ORDERED: Potassium Chloride Riders 10 MEQ in Premix Bag 1 BAG IV ONE (11:19)
[2022-11-01] MEDS ORDERED: Potassium Chloride Riders 50 ML ONE (11:56)
[2022-11-01] MEDS: Sodium Chloride 0.9% 1,000 ML IV SCH ×2 (12:00→15:00)
[2022-11-01] MEDS ORDERED: Magnesium Sulfate/Water 50 ML ONE (12:57)
[2022-11-01] MEDS ORDERED: Iopamidol 755 Mg/ML 100 ML Bottle IV PRN (14:13)
[2022-11-01] MEDS ORDERED: Sodium Chloride 0.9% 50 ML SDV FLUSH SCH (14:15)
[2022-11-01] MEDS ORDERED: levETIRAcetam 500 MG/5 ML SDV ONE (15:15)
[2022-11-01] MEDS ORDERED: Sodium Chloride 0.9% 1,000 ML IV SCH (16:45)
[2022-11-01] MEDS ORDERED: ACETAMINOPHEN PO PRN (18:26)
[2022-11-01] MEDS ORDERED: HYDROCODONE PO PRN (18:26)
[2022-11-01] MEDS ORDERED: [UNRECOGNIZED DRUG - OTHER] PO PRN (18:26)
[2022-11-01] MEDS ORDERED: Ketamine 200 MG/20 ML MDV IVPUSH ONE (18:28)
[2022-11-01] MEDS ORDERED: Ketamine 200 MG/20 ML MDV ONE (19:57)
[2022-11-01] MEDS ORDERED: Acetaminophen/HYDROcodone 325-10 MG Tab ONE (21:05)
[2022-11-01] MEDS: Propranolol 60 MG Cap.ER PO SCH (21:13)
[2022-11-01] MEDS: traZODone 50 MG Tab PO SCH (21:13)
[2022-11-01] MEDS: Colchicine 0.6 MG Tab PO SCH (21:13)
[2022-11-01] MEDS: atorvaSTATin 40 MG Tab PO SCH (21:16)
[2022-11-02] MEDS: glipiZIDE 5 MG Tab.ER PO SCH (07:59)
[2022-11-02] MEDS: Aspirin 81 MG Tab.EC PO SCH (07:59)
[2022-11-02] MEDS: Colchicine 0.6 MG Tab PO SCH ×2 (07:59→21:49)
[2022-11-02] MEDS: Azithromycin 250 MG Tab PO SCH (07:59)
[2022-11-02] MEDS: Omeprazole 20 MG Cap.CR PO SCH (08:00)
[2022-11-02] MEDS: Tamsulosin 0.4 MG Cap.ER PO SCH (08:00)
[2022-11-02] MEDS: Propranolol 60 MG Cap.ER PO SCH (08:00)
[2022-11-02] MEDS ORDERED: fentaNYL 12 MCG/HR Transdermal Patch ONE (09:28)
[2022-11-02] MEDS ORDERED: fentaNYL 12 MCG/HR Transdermal Patch TRDERM SCH (09:30)
[2022-11-02] MEDS: atorvaSTATin 40 MG Tab PO SCH (09:40)
[2022-11-02] MEDS: Sodium Chloride 0.9% 1,000 ML IV SCH (20:36)
[2022-11-02] MEDS ORDERED: Acetaminophen/HYDROcodone 325-10 MG Tab ONE (20:54)
[2022-11-02] MEDS ORDERED: Acetaminophen/HYDROcodone 325-10 MG Tab PO PRN (21:10)
[2022-11-02] MEDS: traZODone 50 MG Tab PO SCH (21:48)
[2022-11-02] MEDS: PROPRANOLOL 80 MG PO SCH (21:49)
[2022-11-03] MEDS: Sodium Chloride 0.9% 1,000 ML IV SCH (05:10)
[2022-11-03] MEDS: glipiZIDE 5 MG Tab.ER PO SCH (07:47)
[2022-11-03] MEDS: Tamsulosin 0.4 MG Cap.ER PO SCH (07:47)
[2022-11-03] MEDS: Aspirin 81 MG Tab.EC PO SCH (07:47)
[2022-11-03] MEDS: Omeprazole 20 MG Cap.CR PO SCH (07:47)
[2022-11-03] MEDS: Colchicine 0.6 MG Tab PO SCH ×2 (07:47→20:25)
[2022-11-03] MEDS: PROPRANOLOL 80 MG PO SCH ×2 (07:47→20:26)
[2022-11-03] MEDS: Azithromycin 250 MG Tab PO SCH (07:47)
[2022-11-03] MEDS ORDERED: Albuterol/Ipratropium 3.0-0.5 MG/3 ML Neb Soln NEB PRN (18:19)
[2022-11-03] MEDS ORDERED: Albuterol/Ipratropium 3.0-0.5 MG/3 ML Neb Soln ONE (18:23)
[2022-11-03] MEDS ORDERED: Melatonin 10 MG Cap PO SCH (20:00)
[2022-11-03] MEDS: traZODone 50 MG Tab PO SCH (20:25)
[2022-11-03] MEDS: atorvaSTATin 40 MG Tab PO SCH (20:25)
[2022-11-03] MEDS ORDERED: Acetaminophen/HYDROcodone 325-10 MG Tab PO PRN (21:10)
[2022-11-04] MEDS: Colchicine 0.6 MG Tab PO SCH (08:04)
[2022-11-04] MEDS: glipiZIDE 5 MG Tab.ER PO SCH (08:04)
[2022-11-04] MEDS: Aspirin 81 MG Tab.EC PO SCH (08:04)
[2022-11-04] MEDS: Tamsulosin 0.4 MG Cap.ER PO SCH (08:04)
[2022-11-04] MEDS: PROPRANOLOL 80 MG PO SCH (08:05)
[2022-11-04] MEDS: Omeprazole 20 MG Cap.CR PO SCH (08:05)
[2022-11-04] MEDS: Azithromycin 250 MG Tab PO SCH (08:05)
[2022-11-04] MEDS ORDERED: Potassium Chloride Riders 50 ML IV SCH (11:00)
[2022-11-04 11:50] VITALS: BP 123/56; PULSE 75
[2022-11-04] MEDS ORDERED: Potassium Chloride 20 MEQ Tab.ER PO ONE (13:30)
== END 2022-11-04 13:35 | disposition home or self-care (01) | DRG 640 ==
LOC: LB.ED 09:37 → LB.MS 16:35
PROVIDERS: ADMIT Surgery; ATTEND Surgery
DX: E87.6 Hypokalemia (principal); J18.9 Pneumonia, unspecified organism; S22.31XA Fracture of one rib, right side, initial encounter for closed fracture; E83.42 Hypomagnesemia; D49.89 Neoplasm of unspecified behavior of other specified sites; R22.2 Localized swelling, mass and lump, trunk; I10 Essential (primary) hypertension; E11.9 Type 2 diabetes mellitus without complications; E86.0 Dehydration; E78.00 Pure hypercholesterolemia, unspecified; E66.9 Obesity, unspecified; Z20.822 Contact with and (suspected) exposure to COVID-19; Z96.82 Presence of neurostimulator; M54.9 Dorsalgia, unspecified; W19.XXXA Unspecified fall, initial encounter; M54.2 Cervicalgia; G89.29 Other chronic pain; Z79.82 Long term (current) use of aspirin; Z79.899 Other long term (current) drug therapy; Z87.891 Personal history of nicotine dependence
CPT/HCPCS: 36415; 71045; 71260; 80048; 80053; 82947; 83735; 83880; 84100; 84443; 84484; 85027; 85379; 87493; 93005; 93010; 96365; 96367; 96375; 99222; 99232; 99238; 99285; 99285-25; A9270-GY; J3475; J3480; J3490; J7030; J7620; Q9967; U0002

== ENCOUNTER 2022-11-21 15:04 | Emergency (ER) | payer OTHER, MEDICARE ==
[2022-11-21] MEDS ORDERED: Sodium Chloride 0.9% 10 ML Syringe FLUSH PRN (15:06)
[2022-11-21] MEDS ORDERED: Albuterol/Ipratropium 3.0-0.5 MG/3 ML Neb Soln NEB PRN (15:07)
[2022-11-21] MEDS ORDERED: Sodium Chloride 0.9% 1,000 ML IV SCH ×2 (15:15→18:30)
[2022-11-21] MEDS ORDERED: Albuterol/Ipratropium 3.0-0.5 MG/3 ML Neb Soln ONE (15:44)
[2022-11-21 16:28] LABS: TROPONIN I HIGH SENSITIVITY 324.2 pg/ml (<=60.4)
[2022-11-21] MEDS ORDERED: Morphine 4 MG/ML VIAL IVPUSH ONE ×3 (17:00→19:41)
[2022-11-21] MEDS ORDERED: Metoprolol Tartrate 5 MG/5 ML SDV IVPUSH ONE (17:01)
[2022-11-21] MEDS ORDERED: Morphine 4 MG/ML VIAL ONE ×2 (17:13→19:47)
[2022-11-21] MEDS ORDERED: Metoprolol Tartrate 5 MG/5 ML SDV ONE (17:19)
[2022-11-21] MEDS ORDERED: Piperacillin/Tazobactam 3.375 GM in Sodium Chloride 0.9% 100 ML IV STA (18:11)
[2022-11-21] MEDS ORDERED: Aspirin 81 MG Tab.Chew PO ONE (18:17)
[2022-11-21] MEDS ORDERED: Heparin Sodium 5,000 Units/ML Vial IVPUSH ONE (19:36)
[2022-11-21] MEDS ORDERED: Heparin Sodium/D5W 25,000 UNITS/500 ML BAG IV SCH ×2 (19:45→20:00)
[2022-11-21] MEDS ORDERED: Heparin Sodium 1,000 Units/ML 10 ML MDV SUBCUT SCH (19:45)
== END 2022-11-21 20:30 ==
LOC: LB.ED 15:04
DX: A41.51 Sepsis due to Escherichia coli [E. coli] (principal); R65.20 Severe sepsis without septic shock; I21.4 Non-ST elevation (NSTEMI) myocardial infarction; I24.9 Acute ischemic heart disease, unspecified; C86.6 Primary cutaneous CD30-positive T-cell proliferations; R22.2 Localized swelling, mass and lump, trunk; J44.9 Chronic obstructive pulmonary disease, unspecified; E78.00 Pure hypercholesterolemia, unspecified; I10 Essential (primary) hypertension; E11.9 Type 2 diabetes mellitus without complications; Z79.82 Long term (current) use of aspirin; Z79.899 Other long term (current) drug therapy; Z20.822 Contact with and (suspected) exposure to COVID-19
CPT/HCPCS: 36415; 71045; 80048; 80076; 83605; 83735; 83880; 84100; 84484; 85027; 85730; 87040; 93005; 93010; 96361; 96365; 96367; 96368; 96375; 96376; 99285; 99285-25; A0425; A0429; A9270-GY; J1644; J2270; J2543; J3370; J3475; J7030; J7050; J7620; U0002